=== PATIENT | female | born 1970 | race Caucasian/White ===

== ENCOUNTER 2023-01-18 16:42 | Outpatient (OUT) | payer OTHER, SELFPAY ==
--- NOTE | 2023-01-18 | XR_ITS ---
[address] [address] Patient Name: SYLVIE SINGH MRN: [id number] date: 1970 Sex: F Assigned Patient Location: [facility] Current Patient Location: [facility] Accession/Order Number: [id number] Exam Date: 01/18/2023 17:15 Report Date: 01/18/2023 18:26 At the request of: LISA KILLIAN Procedure: XR shoulder RT min 2V EXAM: XR shoulder RT min 2V HISTORY: pAIN ANTERIOR RT UPPER EXTREMITY m79.601 COMPARISON: None. TECHNIQUE: 3 views of the right shoulder were obtained. FINDINGS: There is no evidence of an acute fracture or dislocation. The joint spaces are relatively intact. No abnormal soft tissue calcifications are present. IMPRESSION: No acute fracture, dislocation or significant degenerative change at the shoulder. Electronically authenticated by: WILLIAM CHEUNG Date: 01/18/2023 18:26
== END 2023-01-18 16:43 | disposition home or self-care (01) ==
LOC: RAD 16:46
PROVIDERS: PCP Family Medicine; Visit Provider Family Medicine
DX: M79.601 Pain in right arm (principal); M25.511 Pain in right shoulder
CPT/HCPCS: 73030

== ENCOUNTER 2024-07-06 01:51 | Emergency (ER) | payer OTHER, SELFPAY ==
[2024-07-06] VITALS (16 sets, daily range): BP systolic 127–160; BP diastolic 75–101; PULSE 60–71; TEMP 36.8; O2SAT 93–98; BMI 37.4
--- NOTE | 2024-07-06 01:59 | ED.CHESTPAI1 ---
HPI - Chest Pain General Chief Complaint: Chest Pain Stated Complaint: C/P Time Seen by Provider: 07/06/24 01:59 Source: patient Mode of arrival: ambulance Limitations: no limitations History of Present Illness HPI narrative: This 53-year-old female with a history of type 2 diabetes who was formally on insulin and had gastric bypass surgery and has been off of her blood pressure and diabetic medications since losing weight presents for evaluation of dizziness with chest pain and tingling down her left arm. The patient states she has been having episodes of dizziness recently. She was seen by her family physician who ordered some blood work and stated that her sodium was mildly low and she may be mildly dehydrated. She states that he wanted to do a CT angio of her heart. The patient states she was sleeping and woke up feeling short of breath and sat up and could not calm herself down when she started having some chest pain and the tingling down her left arm. She also had some pain in her left scapular area. Her rubs some ointment on this area. She is not having any abdominal pain. She denies any nausea or vomiting. She does have a history of a DVT and was on blood thinners prior to her gastric bypass surgery. She was given 1 nitroglycerin by EMS with improvement in her chest pain from a 6 to a 1. She states she last ate a taco salad for dinner. Related Data Home Medications ?Medication ?Instructions ?Recorded ?Confirmed duloxetine 20 mg capsule,delayed 20 mg PO DAILY 07/06/24 07/06/24 release Allergies Allergy/AdvReac Type Severity Reaction Status Date / Time No Known Drug Allergies Allergy Verified 07/06/24 01:55 Review of Systems ROS Status of ROS 10 or more systems reviewed and unremarkable except as noted in history and below PFSH PFSH Social History Little interest or pleasure in doing things: not at all Feeling down, depressed, or hopeless: not at all Exam Narrative Exam Narrative: Vital signs and Nursing Notes reviewed: Patient is afebrile with a normal pulse, normal blood pressure, she is not hypoxic with pulse ox of 98% on room air General: Awake, alert, oriented, mildly anxious, lying comfortably on the stretcher HEENT: Normocephalic atraumatic, mucous membranes are moist and pink, eyes are clear, normal conjunctiva, vision is grossly intact Chest: Lungs are clear to auscultation with good air entry, there is no wheezing rhonchi or rales appreciated no accessory muscle use, patient is speaking in complete sentences-no chest wall tenderness to palpation CVS: Regular rate and rhythm S1-S2, no murmurs rubs or gallops, pulses are brisk and equal bilaterally ABD: Soft, nondistended, nontender, no rebound guarding or rigidity, bowel sounds are normal, no pulsatile masses appreciated Extremities: Moving all extremities, no lower extremity tenderness or swelling noted, negative Homans' sign, pulses are brisk and equal bilaterally Skin: Normal in appearance without rash,pallor, petechiae or purpura Neuro: No focal deficits Constitutional Vital Signs, click to edit/add: Last Vital Signs Temp 98.3 F 07/06/24 01:51 Pulse 71 07/06/24 03:50 Resp 18 07/06/24 03:50 BP 155/98 H 07/06/24 03:30 Pulse Ox 94 L 07/06/24 03:50 O2 Del Method Room Air 07/06/24 01:51 Course Vital Signs Vital signs: Vital Signs Blood Pressure 137/82 07/06/24 01:49 Temperature 98.3 F 07/06/24 01:51 Pulse Rate 71 07/06/24 03:50 Respiratory Rate 18 07/06/24 03:50 Blood Pressure 155/98 H 07/06/24 03:30 Pulse Oximetry 94 L 07/06/24 03:50 Oxygen Delivery Method Room Air 07/06/24 01:51 MDM - Chest Pain MDM Narrative Medical decision making narrative: This 53-year-old female with a history of gastric bypass surgery who was formally on insulin and blood pressure medications but has since lost weight and is off her medications is brought to the emergency department by EMS from home. The patient has been having episodes of dizziness. She was seen by her family physician recently who did some blood work and told her that she may be somewhat dehydrated. She states she tries to keep up on her fluids but admits that at times she does not drink as much as she should. Last night she had taco salad for dinner. This morning around 1230 she woke up with some dizziness and states she felt like she could not catch her breath. She then developed midsternal chest pain and tingling down her left arm. She also had some pain in her left upper back area. Her rubs her back for a period of time and then called EMS. Upon EMS arrival she was given a sublingual nitroglycerin which brought her pain from a 6 to a 1. Upon arrival her pain was mostly resolved. EKG done upon arrival was a sinus rhythm with no acute findings. An IV was placed and due to her history of gastric bypass surgery and possibly dehydration she was given a liter of normal saline and 81mg baby aspirin and IV Pepcid. Cardiac workup including CBC with differential, comprehensive metabolic profile, troponin and D-dimer was ordered. These labs are all normal. Chest x-ray is negative for acute findings. She has remained hemodynamically stable in the emergency department. Delta troponin was ordered and is also normal. The patient was feeling better after IV fluids. She thinks she may have some degree of dehydration. She was encouraged to drink plenty of fluids and follow-up closely with her family physician. Lab Data Attestation: I reviewed the patient's lab results. Labs: Lab Results 07/06/24 07/06/24 Range/Units 02:10 03:30 WBC 7.4 (4.0-11.0) 10^3/uL RBC 4.14 L (4.20-5.40) 10^6/uL Hgb 11.3 L (12.0-16.0) g/dL Hct 35.4 L (36.0-48.0) % MCV 85.5 (81.0-99.0) fL MCH 27.3 (26.7-34.0) pg MCHC 31.9 (29.9-35.2) g/dL RDW 14.6 (11.0-15.0) % Plt Count 216 (150-450) 10^3/uL MPV 10.4 (9.5-13.5) fL Neut % (Auto) 65.8 (43.0-75.0) % Lymph % (Auto) 25.0 (20.5-60.0) % [place] % (Auto) 7.5 (1.7-12.0) % Eos % (Auto) 1.1 (0.9-7.0) % Baso % (Auto) 0.3 (0.2-2.0) % Neut # (Auto) 4.8 (1.4-6.5) 10^3/uL Lymph # (Auto) 1.8 (1.2-3.8) 10^3/uL [place] # (Auto) 0.6 (0.3-0.8) 10^3/uL Eos # (Auto) 0.1 (0.0-0.7) 10^3/uL Baso # (Auto) 0.0 (0.0-0.1) 10^3/uL Abs Immat Gran (auto) 0.02 (0.00-0.03) 10^3/uL Imm/Tot Granulo (auto) 0.3 (0.0-0.5) % D-Dimer 0.30 (<=0.59) mg/L FEU Sodium 140 (136-145) mmol/L Potassium 4.0 (3.5-5.1) mmol/L Chloride 104 (98-107) mmol/L Carbon Dioxide 31.3 (21.0-32.0) mmol/L Anion Gap 8.7 BUN 16.0 (7.0-18.0) mg/dL Creatinine 0.82 (0.55-1.02) mg/dL Est GFR ( Amer) >60 (>=60 mL/min/1.73m^2) Est GFR (Non-Af Amer) >60 (>=60 mL/min/1.73m^2) BUN/Creatinine Ratio 19.5 Glucose 120 H (74-106) mg/dL Calcium 8.8 (8.5-10.1) mg/dL Total Bilirubin 0.6 (0.2-1.0) mg/dL AST 19 (15-37) U/L ALT 23 (14-59) U/L Alkaline Phosphatase 95 (46-116) U/L Troponin I High Sens 4.5 4.0 (4.0-51.3) pg/mL Total Protein 6.2 L (6.4-8.2) g/dL Albumin 2.7 L (3.4-5.0) g/dL Globulin 3.5 g/dL Albumin/Globulin Ratio 0.8 ECG Data Attestation: I personally reviewed and interpreted this ECG as follows: (Sinus rhythm at 66 bpm, normal axis, normal intervals, no acute ST segment elevation or T wave inversion) Heart Score History: Slightly/Non-Suspicious ECG: Normal Age: >45-<65 years Risk Factors: 1 or 2 Risk Factors Troponin: <Normal Limit Total Heart Score Recommendations & Risks:: 2 Discharge Plan Discharge Chief Complaint: Chest Pain Clinical Impression: Non-cardiac chest pain, Dizziness Patient Disposition: Home, Self-Care Time of Disposition Decision: 04:34 Condition: Good Prescriptions / Home Meds: No Action duloxetine 20 mg capsule,delayed release(DR/EC) 20 mg PO DAILY Print Language: Belarusian Instructions: Dizziness (ED), Noncardiac Chest Pain (ED) Referrals: LISA KILLIAN [Primary Care Provider] - 1 week
[2024-07-06 02:18] LABS: Basophils Percent Auto 0.3 % (0.2-2.0); Eosinophils Absolute Auto 0.1 10^3/uL (0.0-0.7); Eosinophils Percent Auto 1.1 % (0.9-7.0); Hematocrit 35.4 % (36.0-48.0); Hemoglobin 11.3 g/dL (12.0-16.0); Immature Granulocytes Abs Auto 0.02 10^3/uL (0.00-0.03); Immature Granulocytes Pct Auto 0.3 % (0.0-0.5); Lymphocytes Absolute Auto 1.8 10^3/uL (1.2-3.8); Mean Corpuscular HGB Conc 31.9 g/dL (29.9-35.2); Mean Corpuscular Hemoglobin 27.3 pg (26.7-34.0); Mean Corpuscular Volume 85.5 fL (81.0-99.0); Mean Platelet Volume 10.4 fL (9.5-13.5); Monocytes Absolute Auto 0.6 10^3/uL (0.3-0.8); Monocytes Percent Auto 7.5 % (1.7-12.0); Neutrophils Absolute Auto 4.8 10^3/uL (1.4-6.5); Neutrophils Percent Auto 65.8 % (43.0-75.0); Platelet Count 216 10^3/uL (150-450); Red Blood Count 4.14 10^6/uL (4.20-5.40); Red Cell Distribution Width 14.6 % (11.0-15.0); White Blood Count 7.4 10^3/uL (4.0-11.0)
[2024-07-06 02:38] LABS: Alanine Aminotransferase 23 U/L (14-59); Albumin Globulin Ratio 0.8; Albumin Level 2.7 g/dL (3.4-5.0); Alkaline Phosphatase 95 U/L (46-116); Anion Gap 8.7; Aspartate Amino Transferase 19 U/L (15-37); BUN Creatinine Ratio 19.5; Bilirubin Total 0.6 mg/dL (0.2-1.0); Calcium 8.8 mg/dL (8.5-10.1); Carbon Dioxide 31.3 mmol/L (21.0-32.0); Chloride 104 mmol/L (98-107); Estimated GFR (African America >60 (>=60 mL/min/1.73m^2); Estimated GFR (Non-African Ame >60 (>=60 mL/min/1.73m^2); Globulin 3.5 g/dL; Glucose 120 mg/dL (74-106); Sodium 140 mmol/L (136-145); Total Protein 6.2 g/dL (6.4-8.2); Troponin I High Sensitivity 4.5 pg/mL (4.0-51.3)
[2024-07-06] MEDS: 0.9 % SODIUM CHLORIDE 1,000 ML 1000 ML IV (02:40)
[2024-07-06] MEDS: FAMOTIDINE/PF 20 MG/2 ML VIAL IV (02:42)
[2024-07-06] MEDS: ASPIRIN 81 MG TAB.CHEW PO (02:42)
--- NOTE | 2024-07-06 03:19 | XR_ITS ---
The [address] [address] Patient Name: SYLVIE SINGH MRN: [id number] date: 1970 Sex: F Assigned Patient Location: ER Current Patient Location: ER Accession/Order Number: [id number] Exam Date: 07/06/2024 03:31 Report Date: 07/06/2024 04:01 At the request of: ASHA MARKER Procedure: XR chest 1V EXAM: XR chest 1V HISTORY: Chest pain COMPARISON: Chest radiograph dated 10/08/2022. TECHNIQUE: One view of the chest was obtained. FINDINGS: The cardiac silhouette is borderline enlarged though stable in size. There is mild suspected bibasilar atelectasis. There is no significant pneumothorax or pleural effusion. No acute osseous abnormality is seen. An anchor screw is seen within the right humeral head. XR/XR chest 1V IMPRESSION: 1. Stable borderline enlarged cardiac silhouette with mild bibasilar atelectasis. Electronically authenticated by: Kelly BELLE Date: 07/06/2024 04:01
--- NOTE | 2024-07-06 05:43 | ECG_ITS ---
The 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
== END 2024-07-06 05:00 | disposition home or self-care (01) ==
PROVIDERS: Emergency Provider Emergency Medicine; PCP Family Medicine
DX: R07.89 Other chest pain (principal); R42 Dizziness and giddiness; E11.9 Type 2 diabetes mellitus without complications; Z98.84 Bariatric surgery status; Z86.718 Personal history of other venous thrombosis and embolism
CPT/HCPCS: 36415; 71045; 80053; 84484; 85025; 85378; 93005; 96361; 96374; 99285

== ENCOUNTER 2025-01-23 14:16 | Emergency (ER) | payer OTHER, SELFPAY ==
--- OUTSIDE RECORDS SUMMARY | 2024-08-17 11:45 | XMS_ITS | Continuity of Care Document ---
Author [facility] [employer] [facility] Address [address] [facility] [place] [address] Phone Care Team Providers Care Rock Star Name Role Phone Sabina Mcgee CNP Unavailable Unavailable Procedures Procedure Date OFFICE/OUTPATIENT VISIT, EST OFFICE/OUTPATIENT VISIT, EST POSTOP FOLLOW-UP VISIT POSTOP FOLLOW-UP VISIT LAP GASTRIC BYPASS/SCOT-EN-Y OFFICE/OUTPATIENT VISIT, EST PSYCL TST EVAL PHYS/QHP 1ST PSYCL/NRPSYC TST PHY/QHP PSYCL/NRPSYC TST PHY/QHP OFFICE/OUTPATIENT VISIT, NEW Advance Directives Directive Yes / No Effective Date File Name No Information Encounters Encounter Description Practice Location Reason(s) For Visit Diagnoses Date Provider Providers Copied on Encounter OFFICE/OUTPATI ENT VISIT, [facility] [employer] [facility], [address] [place] [address], [id number], [place] tel:[phone] [facility] No Information Arely Muhammad. [address] [place] [address], [id number], [place]. tel:[phone] Referring Provider: Sabina Mcgee, [address] [place] [address], [place], [address]. tel:[phone] OFFICE/OUTPATI ENT VISIT, [facility] [employer] [facility], [address] [place] [address], [id number], [place] tel:[phone] [facility] No Information Shellie Reeves. [address] [place] [address] [address], [place], [place], [id number], [place]. tel:[phone] Referring Provider: Leandro Malone, [address] [place] [address] [address], [place], [address]. tel:[phone], [address] [place] [address] [address], [place], [place], [id number], [place] tel:[phone] [facility] No Information Arely Muhammad. [address] [place] [address] [address], [place], [place], [id number], [place]. tel:[phone] Referring Provider: Sabina Mcgee, [address] [place] [address] [address], [place], [address]. tel:[phone], [address] [place] [address] [address], [place], [place], [id number], [place] tel:[phone] [facility] No Information Arely Muhammad. [address] [place] [address] [address], [place], [place], [id number], [place]. tel:[phone] Referring Provider: Sabina Mcgee, [address] [place] [address] [address], [place], [address]. tel:[phone] [employer] [facility], [address] [place] [address] [address], [place], [place], [id number], [place] tel:[phone] [facility] No Information Shellie Reeves. [address] [place] [address] [address], [place], [place], [id number], [place]. tel:[phone] Referring Provider: Leandro Malone, [address] [place] [address] [address], [place], [address]. tel:[phone] OFFICE/OUTPATI ENT VISIT, [facility] [employer] [facility], [address] [place] [address] [address], [place], [place], [id number], [place] tel:[phone] [facility] No Information Shellie Reeves. [address] [place] [address], [place], [place], [id number], [place]. tel:[phone] Referring Provider: Leandro Malone, [address] [place] [address], [place], [address]. tel:[phone] [facility], [address] [place] [address], [place], [place], [id number], tel:[phone] [facility] No Information Kaleb Granger. [address] [place] [address], [place], [place], [id number], [place]. tel:[phone] Referring Provider: Bárbara Manuel, [address] [place] [address], [place], [address]. tel:[phone] OFFICE/OUTPATI ENT VISIT, [facility], [address] [place] [address] B, [place], [place], [id number], tel:[phone] [facility] No Information Shellie Reeves. [address] [place] [address], [id number], [place]. tel:[phone] Referring Provider: Leandro Malone, [address] [place] [address], [place], [address]. tel:[phone] Family History Family Member Type Diagnosis Age At Onset No Information Payers Payer name Insurance type Covered democrat ID Halle hogan(s) [facility] [id number] Social History Type Description Quantity Date Captured Comments Sex Female Smoking Status No Information Chief Complaint And Reason For Visit No Information Reason For Referral Reason For Referral No Information Plan Of Treatment Date Type Action Status Appointment Ronan Menon BOOKED History Of Present Illness Encounter Date Complaint History Of Prese nt Illness No Information Functional Status Date Functional Assessmen t No Information Instructions Date Instruction Additional Infor mation No Information Assessments Type Assessment Date No Information Patient Care Teams Name Effective Dates (start - stop) Status Members No Information
[2025-01-23] VITALS (21 sets, daily range): BP systolic 119–192; BP diastolic 61–102; PULSE 69–89; O2SAT 93–98; BMI 35.8
--- OUTSIDE RECORDS SUMMARY | 2025-01-23 13:20 | XMS_ITS | Encounter Summary ---
Author Organization [facility] Address [address] [facility] [place] [address] Care Team Providers Care Office Cleaner Name Role Phone Jaylon Schroeder DO Unavailable Neftali Hicks DO Primary Care Provider Francis Benjamin MD Unavailable Reason for Visit * Reason Comments Hypertension Encounter Details Date Type Department Care Team (Late st Contact Info) Description 01/23/2025 1:20 PM EDT Office Visit [facility] [address] [facility] [address] [place] [address] Neftali Hicks DO [address] [place], [place] [id number] Primary hypertension (Primary Dx); Left facial numbness Social History Tobacco Use Types Packs/Day Years Used Date Smoking Tobacco: Never Smokeless Tobacco: Never Alcohol Use Standard Drinks/Week Comments Not Currently 0 (1 standard drink = 0.6 oz pur e alcohol) not often Humiliation, Afraid, Rape, and Kick questionnair e Answer Date Recorded Within the last year, have y ou been afraid of your partner or ex-partner? No 01/18/2023 Within the last year, have y ou been humiliated or emotionally abused in other ways by your partner or ex-partner? No Within the last year, have y ou been kicked, hit, slapped, or otherwise physically hurt by your partner or ex-partner? No 01/18/2023 Within the last year, have y ou been raped or forced to have any kind of sexual activity by your partner or ex-partner? No 01/18/2023 Social Connection and Isolat ion Panel [NHANES] Answer Date Recorded In a typical week, how many times do you talk on the phone with family, friends, or neighbors? More than three times a week 01/18/2023 How often do you get togethe r with friends or relatives? Twice a week 01/18/2023 How often do you attend chur or sikh services? More than 4 times per year 01/18/2023 Do you belong to any clubs o r organizations such as buddhist groups, unions, fraternal or athletic groups, or school groups? No 01/18/2023 How often do you attend meet ings of the clubs or organizations you belong to? Never 01/18/2023 Are you , , di vorced, , never , or living with a partner? 01/18/2023 AUDIT-C Answer Date Recorded Q1: How often do you have a drink containing alc ohol? Monthly or less 09/25/2024 Q2: How many drinks containi ng alcohol do you have on a typical day when you are drinking? 1 or 2 09/25/2024 Q3: How often do you have si x or more drinks on one occasion? Never 09/25/2024 Overall Financial Resource Strain (CARDIA) Answe r Date Recorded How hard is it for you to pa y for the very basics like food, housing, medical care, and heating? Not very hard 01/18/2023 PHQ-2 Answer Date Recorded Patient Health Questionnaire-2 Score 0 01/23/2025 [facility] - Occupational Stress Questionnaire Answer Date Recorded Do you feel stress - tense, restless, nervous, or anxious, or unable to sleep at night because your mind is troubled all the time - these days? Very much 01/18/2023 Exercise Vital Sign Answer Date Recorde d On average, how many days pe r week do you engage in moderate to strenuous exercise (like a brisk walk)? 2 days 01/18/2023 On average, how many minutes do you engage in exercise at this level? 20 min 01/18/2023 Hunger Vital Sign Answer Date Recorded Within the past 12 months, y ou worried that your food would run out before you got the money to buy more. Never true 01/19/20 Within the past 12 months, t he food you bought just didn't last and you didn't have money to get more. Never true 01/18/2023 PRAPARE - Transportation Answer Date Re corded In the past 12 months, has l ack of transportation kept you from medical appointments or from getting medications? No 12/25 In the past 12 months, has l ack of transportation kept you from meetings, work, or from getting things needed for daily living? No 01/18/2023 Housing Stability Vital Sign Answer Tello e Recorded In the last 12 months, was t here a time when you were not able to pay the mortgage or rent on time? No 01/18/2023 In the last 12 months, how many places have you lived? 1 01/18/2023 In the last 12 months, was t here a time when you did not have a steady place to sleep or slept in a senior living (including now)? No 01/18/2023 Comments No Sex and Gender Information Value Date Recorded Sex Assigned at Female 01/13/2023 7:52 PM EDT Legal Sex Female 6:48 PM EDT Gender Identity Female 01/13/2023 7:52 PM EDT Sexual Orientation Straight 01/13/2023 7: 53 PM EDT documented as of this encounter Last Filed Vital Signs Vital Sign Reading Time Taken Comments Blood Pressure 150/92 01/23/2025 1:22 PM EDT Pulse 72 01/23/2025 1:22 PM EDT Temperature 36.6 C (97.9 F) 01/23/2025 1:22 PM EDT Respiratory Rate - - Oxygen Saturation 99% 01/23/2025 1:22 PM EDT Inhaled Oxygen Concentration - - Weight 100 kg (221 lb) 01/23/2025 1:22 PM EDT Height 165.1 cm (5' 5 ) 01/23/2025 1:22 PM EDT Body Mass Index 36.78 01/23/2025 1:22 PM EDT documented in this encounter Functional Status * Over the past 2 weeks, how often have you been bothered by any of the following problems? Question Answer Date of Assessment Author Little interest or pleasure in doing things Not at all 01/23/2025 1:28 PM EDT Felicia Tineo MA Feeling down, depressed, or hopeless Not at all 01/23/2025 1:28 PM EDT Felicia Tineo MA Patient Health Questionnaire -2 Score 0 01/23/2025 1:28 PM EDT Felicia Tineo MA documented as of this encounter Progress Notes * Neftali Hicks, DO - 01/23/2025 1:20 PM EDT Images from the original note were not included. [facility] TOBI [place] SUBJECTIVE: HPI: Ronan Menon is a 54 y.o. female who presents with chief complaint of Hypertension (/) Pt states she has been having high blood pressure reading all day today. Pt states that on 01/22/25 she was not feeling well and she thought it was her BS but then realized it was her BP. Pt states that her BP was 195/99 about 30 minutes ago. Hypertension I have reviewed and reconciled the history and medication list with the patient today. History of Present Illness The patient presents for evaluation of elevated blood pressure. She reports feeling unwell today, with symptoms including a sensation of fuzziness, tingling, and general discomfort that began last night. Initially, she attributed these symptoms to her blood sugarlevels, but upon checking, her blood sugar was found to be 116. She then considered her blood pressure as a potential cause and found it to be elevated. She has not been on any blood pressure medication for over a year, although she was previously taking Cozaar 100 mg daily. She has a wrist cuff athome for monitoring her blood pressure but has not felt the need to use it recently. She works in [employer] home where her blood pressure is monitored using both automatic and manual cuffs, with readings typically differing by only one unit. She also reports intermittent tingling in her lips and left arm, along with an unusual sensation inher head. She has a history of undergoing CT scans every 2 years due to a family history of aneurysms but has not had one recently. She experienced a mild headache, which resolved after taking Tylenol. She prefers to seek medical attention at [facility] rather than [facility]. Supplemental Information She will be getting some lab work done in a week or two as she has her yearly follow-up with the gastric bypass. FAMILY HISTORY Her mother had 4 aneurysms, 2 of which burst. Two of her mother's siblings had aneurysms. Two of her cousins have had aneurysms. MEDICATIONS - Previously took Cozaar Depression: Not at risk (01/23/2025) PHQ-2 PHQ-2 Score: 0 reports that she has never smoked. She has never used smokeless tobacco. She reports that she does not currently use alcohol. She reports that she does not use drugs. OBJECTIVE: 07/21/2024 11:31 AM 08/15/2024 8:39 AM 09/18/2024 3:39 PM 09/25/2024 3:09 PM 10/19/2024 8:42 AM 10/25/2024 3:52 PM 01/23/2025 1:22 PM Vitals BMI 40.44 kg/m2 40.44 kg/m2 39.94 kg/m2 36.44 kg/m2 36.44 kg/m2 36.44 kg/m2 36.78 kg/m2 BSA (m2) 2.25 m2 2.25 m2 2.24 m2 2.13 m2 2.13 m2 2.13 m2 2.14 m2 Systolic 136 122 150 Diastolic 84 80 92 Heart Rate 85 80 72 SpO2 94 % 95 % 99 % Temp 98.3 ??F 97.3 ??F 97.9 ??F Resp 16 Height (in) 5' 5 5' 5 5' 5 5' 5 5' 5 5' 5 5' 5 Weight (lb) 243 243 240 219 219 219 221 Visit Report Report Report Report Report Report Report Report Physical Exam Constitutional: General: She is not in acute distress. Appearance: She is not ill-appearing or toxic-appearing. HENT: Head: Normocephalic. Eyes: Conjunctiva/sclera: Conjunctivae normal. Pulmonary: Effort: Pulmonary effort is normal. No respiratory distress. Breath sounds: No stridor. Abdominal: General: Abdomen is flat. Tenderness: There is no abdominal tenderness. Musculoskeletal: General: No swelling or signs of injury. Normal range of motion. Cervical back: Normal range of motion. Skin: General: Skin is warm and dry. Neurological: General: No focal deficit present. Mental Status: She is alert. Mental status is at baseline. Coordination: Coordination normal. Gait: Gait normal. Comments: Unilat parasthesias/numbness of L face and LUE Psychiatric: Mood and Affect: Mood normal. Behavior: Behavior normal. Thought Content: Thought content normal. Judgment: Judgment normal. Physical Exam Results Laboratory Studies Blood sugar was 116. No results found for this or any previous visit (from the past 4 weeks). ASSESSMENT AND PLAN: Assessment/Plan Diagnoses and all orders for this visit: Primary hypertension - olmesartan (BENIcar) 20 MG tablet; Take 1 tablet (20 mg) by mouth Daily Left facial numbness Assessment & Plan 1. Elevated blood pressure: Chronic. - Prescription for olmesartan 20 mg issued. - Monitor blood pressure at home using an upper arm cuff. - Adjust dosage if blood pressure remains high after one week. 2. Unilateral numbness and tingling: Acute. - Family history of aneurysms and hemorrhagic stroke. - Advised to go to the emergency department immediately for a CT scan to rule out serious conditions. - Declined EMS transfer from the office due to preference for [facility] over [facility] department. - Advised to have a friend or family member drive due to potential risk of stroke. She stated she will drive herself. Follow-up - Yearly follow-up with gastric bypass in a week or two. Neftali Hicks DO Patient Active Problem List Diagnosis Cervical radiculopathy Type 2 diabetes mellitus without complication, without long-term current use of insulin ([facility]) Arthritis of left hip Arthritis of left knee Arthritis of right knee Chronic fatigue syndrome Essential hypertension Euthyroid sick syndrome Gastroesophageal reflux disease without esophagitis H/O hysterectomy for benign disease Moderate episode of recurrent major depressive disorder (HCC) Class 2 severe obesity due to excess calories with serious comorbidity and body mass index (BMI) of36.0 to 36.9 in adult ([facility] [place] Postmenopausal symptoms Restless leg syndrome Skin sensation disturbance BMI 50.0-59.9, adult ([facility] [place] Abnormal EKG History of Isabell-en-Y gastric bypass Past Medical History: Diagnosis Date Anxiety BMI 40.0-44.9, adult ([facility] [place] Borderline diabetes borderline diabetes no meds DM (diabetes mellitus), type [address]) Hypertension Hypertensive emergency IBS (irritable bowel syndrome) Internal derangement of left knee LILLIANA (obstructive sleep apnea) 02/04/2023 Rotator cuff syndrome of left shoulder Situational anxiety SOB (shortness of breath) 10/08/2022 chest pressure, TBH 1 night Type 2 diabetes mellitus with hyperglycemia, without long-term current use of insulin (HCC) documented in this encounter Plan of Treatment Upcoming Encounters Date Type Department Care Team (Late st Contact Info) Description 10/22/2025 8:00 AM EDT Office Visit [facility] [address] [facility] [address] [place] [address] Neftali Hicks DO [address] [facility] [address] [place] [address] documented as of this encounter Visit Diagnoses Diagnosis Primary hypertension- Primary Unspecified essential hypertension Left facial numbness Disturbance of skin sensation documented in this encounter Care Teams Office Cleaner Relationship Specialty Start Date End Date Neftali Hicks DO [address] [facility] [address] [place] [address] PCP - General Family Medicine 10/19/24 Jaylon Schroeder DO [address] [facility] [place] [place] [address] Otolaryngology 08/15/24 Francis Benjamin MD [address] [place] [address] Referring Physician Family Medicine 10/25/24 documented as of this encounter
--- OUTSIDE RECORDS SUMMARY | 2025-01-23 14:24 | XMS_ITS | Encounter Summary ---
Author Organization [facility] Address [address] [place] [address] Care Team Providers Care Hydramatic Mechanic Name Role Phone Francis Benjamin MD Primary Care Provider Jaylon Schroeder Man DO Unavailable [phone] Neftali Hicks DO Primary Care Provider Francis Benjamin MD Unavailable [phone] Encounter Details Date Type Department Care Team (Late st Contact Info) Description 11/24/2023 Orders Only [facility] [address] [place] [address] Francis Benjamin MD [address] [facility] [address] [place] [address] Essential hypertension (Primary Dx); Type 2 diabetes mellitus with hyperglycemia, with long-term current use of insulin (HCC); Flank pain Social History Tobacco Use Types Packs/Day Years Used Date Smoking Tobacco: Never Smokeless Tobacco: Never Alcohol Use Standard Drinks/Week Comments Yes 3 (1 standard drink = 0.6 oz pur e alcohol) Humiliation, Afraid, Rape, and Kick questionnair e [...] How often do you attend chur or christianity services? More than 4 times per year 01/18/2023 Do you belong to any clubs o r organizations such as synagogue groups, unions, fraternal or athletic groups, or school groups? No 01/18/2023 How often do you attend meet ings of the clubs or organizations you belong to? Never 01/18/2023 Are you , , di vorced, , never , or living with a partner? 01/18/2023 AUDIT-C Answer Date Recorded Q1: How often do you have a drink containing alc ohol? Monthly or less 01/18/2023 Q2: How many drinks containi ng alcohol do you have on a typical day when you are drinking? 1 or 2 01/18/2023 Q3: How often do you have si x or more drinks on one occasion? Never 01/18/2023 Overall Financial Resource Strain (CARDIA) Answe r Date Recorded How hard is it for you to pa y for the very basics like food, housing, medical care, and heating? Not very hard 01/18/2023 PHQ-2 Answer Date Recorded Patient Health Questionnaire-2 Score 0 07/12/2023 [facility] Occupat ional Health - Occupational Stress [...] money to buy more. Never true 01/19/20 23 Within the past 12 months, t he [...] place to sleep or slept in a long term (including now)? No 01/18/2023 Comments No Sex and Gender Information Value Date Recorded Sex Assigned at Female 01/13/2023 7:52 PM EDT Legal Sex Female 6:48 PM EDT Gender Identity Female 01/13/2023 7:52 PM EDT Sexual Orientation Straight 01/13/2023 7: 53 PM EDT documented as of this encounter Plan of Treatment Upcoming Encounters Date Type Department Care Team (Late st Contact Info) Description 10/22/2025 8:00 AM EDT Office Visit [facility] [address] [place] [address] Neftali Hicks, [address] [place] [address] documented as of this encounter Procedures Procedure Name Priority Date/Time Associated Diagnosis Comments COMPREHENSIVE METABOLIC PANEL Routine 12/01/2023 8:06 AM EDT Essential hypertension Type 2 diabetes mellitus with hyperglycemia, with long-term current use of insulin (HCC) Flank pain documented in this encounter Results * (ABNORMAL) Comprehensive metabolic panel (12/01/2023 8:06 AM EDT) Glucose 166(H) 65 - 99 mg/dL [facility] Comment: Fasting reference interval For someone without known diabetes, a glucose value >125 mg/dL indicates that they may have diabetes and this should be confirmed with a follow-up test. BUN 15 7 - 25 mg/dL [facility] Creatinine 0.60 0.50 - 1.03 mg/dL [facility] EGFR 107 > OR = 60 mL/min/1. 73m2 [facility] BUN/CREATININE RATIO SEE NOTE: 6 - 22 (calc) [facility] Comment: Not Reported: BUN and Creatinine are within reference range. Sodium 137 135 - 146 mmol/L [facility] Potassium, Bld 4.5 3.5 - 5.3 mmol/L [facility] Chloride 102 98 - 110 mmol/L [facility] Carbon Dioxide 30 20 - 32 mmol/L [facility] Calcium 8.8 8.6 - 10.4 mg/dL [facility] PROTEIN, TOTAL 6.3 6.1 - 8.1 g/dL [facility] ALBUMIN 3.8 3.6 - 5.1 g/dL [facility] GLOBULIN 2.5 1.9 - 3.7 g/dL (calc) [facility] ALBUMIN/GLOBULIN RATIO 1.5 1.0 - 2.5 (calc) [facility] BILIRUBIN, TOTAL 0.7 0.2 - 1.2 mg/dL [facility] ALKALINE PHOSPHATASE 82 37 - 153 U/L [facility] AST 16 10 - 35 U/L [facility] ALT 18 6 - 29 U/L [facility] Blood Venous blood specimen / Unknown 12/01/2023 8:06 AM EDT 12/01/2023 2:41 PM EDT Narrative [facility] - 12/01/2023 3:53 PM EDT FASTING:YES FASTING: YES Resulting Agency Comment Performing Organization Information Site ID: [id number] Address: [address] [place] [id number] Director: Paul Hernandez Francis Benjamin MD LAB BLOOD ORDERABLES Final R esult [facility] documented in this encounter Visit Diagnoses Diagnosis Essential hypertension- Primary Unspecified essential hypertension Type 2 diabetes mellitus with hyperglycemia, with long-term current use of insulin (HCC) Flank pain Abdominal pain, unspecified site documented in this encounter Care Teams Hydramatic Mechanic Relationship Specialty Start Date End Date Francis Benjamin MD [address] [facility] [address] [place] [address] PCP - General Family Medicine 12/10/22 10/18/24 Neftali Hicks DO [address] [place] [address] PCP - General Family Medicine 10/19/24 Jaylno Schroeder DO [address] [place] [address] Otolaryngology 08/15/24 Francis Benjamin MD [address] [address] Referring Physician Family Medicine 10/25/24 documented as of this encounter
--- OUTSIDE RECORDS SUMMARY | 2025-01-23 14:24 | XMS_ITS | Encounter Summary ---
Author Organization [facility] Address [address] [place] [address] Care Team Providers Care Sales Account Director Name Role Phone Francis Benjamin MD Primary Care Provider [phone] Elda Jaylon Conway DO Unavailable [phone] Neftali Hicks DO Primary Care Provider Francis Benjamin MD Unavailable [phone] Encounter Details Date Type Department Care Team (Late st Contact Info) Description 06/12/2023 Abstract [facility] [address] [place] [id number] Beverley Juares NP Social History Tobacco Use Types Packs/Day Years Used Date Smoking Tobacco: Never Smokeless Tobacco: Never Tobacco Cessation:Counseling Given: Not Answered Alcohol Use Standard Drinks/Week Comments Yes 2 (1 standard drink = 0.6 oz pur [...] How often do you attend chur or yazidism services? More than 4 times per year 01/18/2023 Do you belong to any clubs o r organizations such as spiritism groups, unions, fraternal or athletic groups, or [...] care, and heating? Not very hard 01/18/2023 [facility] Occupat ional Health - Occupational [...] place to sleep or slept in a halfway (including now)? No 01/18/2023 Comments No Sex [...] [facility] [address] [facility] 230 [place] [address] Neftali Hicks DO [address] [place] [address] documented as of this encounter Visit Diagnoses Not on filedocumented in this encounter Care Teams Sales Account Director Relationship Specialty Start Date End Date Francis Benjamin MD [address] [place] [address] PCP - General Family Medicine 12/10/22 10/18/24 Neftali Hicks DO [address] [place] [address] PCP - General Family Medicine 10/19/24 Jaylon Schroeder DO [address] [place] [address] Otolaryngology 08/15/24 Francis Benjamin MD [address] [address] Referring Physician Family Medicine 10/25/24 documented as of this encounter
--- OUTSIDE RECORDS SUMMARY | 2025-01-23 14:24 | XMS_ITS | Encounter Summary ---
Author Organization [facility] Address [address] [place] [address] Care Team Providers Care Awning Craftsperson Name Role Phone Francis Benjamin MD Primary Care Provider Jaylon Schroeder Man DO Unavailable [phone] Neftali Hicks DO Primary Care Provider Francis Benjamin MD Unavailable [phone] Encounter Details Date Type Department Care Team (Late st Contact Info) Description 12/16/2023 Orders Only [facility] [address] [place] [address] Francis Benjamin MD [address] [address] Type 2 diabetes mellitus with hyperglycemia, with long-term current use of insulin (HCC) (Primary Dx) Social History Tobacco Use Types Packs/Day Years [...] How often do you attend chur or zoroastrian services? More than 4 times per year 01/18/2023 Do you belong to any clubs o r organizations such as tenriism groups, unions, fraternal or athletic groups, or [...] Recorded Patient Health Questionnaire-2 Score 0 07/12/2023 [facility] of Occupat ional Health - Occupational Stress [...] place to sleep or slept in a retirement (including now)? No 01/18/2023 Comments No Sex [...] [address] [place] [address] Neftali Hicks DO [address] [place] [address] documented as of this encounter Procedures Procedure Name Priority Date/Time Associated Diagnosis Comments HEMOGLOBIN A1C Routine 12/22/2023 12:06 PM EDT Type 2 diabetes mellitus with hyperglycemia, with long-term current use of insulin (HCC) documented in this encounter Results * (ABNORMAL) Hemoglobin A1c (12/22/2023 12:06 PM EDT) Hemoglobin A1C 8.5(H) <5.7 % of total Hgb [facility] Comment: For someone without known diabetes, a hemoglobin A1c value of 6.5% or greater indicates that they may have diabetes and this should be confirmed with a follow-up test. For someone with known diabetes, a value <7% indicates that their diabetes is well controlled and a value greater than or equal to 7% indicates suboptimal control. A1c targets should be individualized based on duration of diabetes, age, comorbid conditions, and other considerations. Currently, no consensus exists regarding use of hemoglobin A1c for diagnosis of diabetes for children. This test was performed on the Rosana gia c503 platform. Effective 07/12/23, a change in test platforms from the Montes Technical Writing Lead/Mgr to the Rosana gia c503 may have shifted HbA1c results compared to historical results. Based on laboratory validation testing conducted at [facility], the Rosana platform relative to the Montes platform had an average increase in HbA1c value of < or = 0.3%. This difference is within accepted variability established by the National Glycohemoglobin Standardization Program. Note that not all individuals will have had a shift in their results and direct comparisons between historical and current results for testing conducted on different platforms is not recommended. Blood Venous blood specimen / Unknown 12/22/2023 12:06 PM EDT 12/22/2023 12:07 PM EDT Narrative [facility] - 12/23/2023 3:58 AM EDT FASTING:NO FASTING: NO Resulting Agency Comment Performing Organization Information Site ID: [id number] Name: [facility] Address: [address] [place] [address], [address] [place] [id number] Director: Leonard Machado MD us Francis Benjamin MD LAB BLOOD ORDERABLES Final R esult [facility] documented in this encounter Visit Diagnoses Diagnosis Type 2 diabetes mellitus with hyperglycemia, with long-term current use of insulin (HCC)- Primary documented in this encounter Care Teams Awning Craftsperson Relationship Specialty Start Date End Date Francis Benjamin MD [address] [place] [address] PCP - General Family Medicine 12/10/22 10/18/24 Neftali Hicks DO [address] [place] [address] PCP - General Family Medicine 10/19/24 Jaylon Schroeder DO [address] [place] [address] Otolaryngology 08/15/24 Francis Benjamin MD [address] [place] [address] Referring Physician Family Medicine 10/25/24 documented as of this encounter
--- OUTSIDE RECORDS SUMMARY | 2025-01-23 14:24 | XMS_ITS | Encounter Summary ---
Author Organization [facility] Address [address] [place] [address] Care Team Providers Care Network Technology Instructor Name Role Phone Francis Benjamin MD Primary Care Provider [phone] Jaylon Schroeder Man DO Unavailable [phone] Neftali Hicks DO Primary Care Provider [phone] Francis Benjamin MD Unavailable [phone] Reason for Visit * Reason Onset Date Comments Med Refill 08/08/2024 Encounter Details Date Type Department Care Team (Late st Contact Info) Description 08/08/2024 Refill [facility] [address] [place] [address] Francis Benjamin MD 112 [facility] [address] [place] [address] Moderate episode of recurrent major depressive disorder (HCC) Social History Tobacco Use Types Packs/Day Years [...] How often do you attend chur or zoroastrianism services? More than 4 times per year 01/18/2023 Do you belong to any clubs o r organizations such as roman catholic groups, unions, fraternal or athletic groups, or [...] Recorded Patient Health Questionnaire-2 Score 0 07/12/2023 [facility] [place] of Occupat ional Health - Occupational Stress [...] place to sleep or slept in a longterm (including now)? No 01/18/2023 Comments No Sex [...] [address] [place] [address] Neftali Hicks DO [address] [place] [address] documented as of this encounter Visit Diagnoses Diagnosis Moderate episode of recurrent major depressive disorder (HCC) documented in this encounter Care Teams Network Technology Instructor Relationship Specialty Start Date End Date Francis Benjamin MD [address] [place] [address] PCP - General Family Medicine 12/10/22 10/18/24 Neftali Hicks DO [address] [place] [address] PCP - General Family Medicine 10/19/24 Jaylon Schroeder DO [address] [place] [address] Otolaryngology 08/15/24 Francis Benjamin MD [address] [place] [address] Referring Physician Family Medicine 10/25/24 documented as of this encounter
--- OUTSIDE RECORDS SUMMARY | 2025-01-23 14:24 | XMS_ITS | Encounter Summary ---
Author Organization [facility] Address [address] [place] [address] Care Team Providers Care Attorney Lawyer Name Role Phone Francis Benjamin MD Primary Care Provider [phone] Jaylon Schroeder Man DO Unavailable [phone] Neftali Hicks DO Primary Care Provider Francis Benjamin MD Unavailable [phone] Reason for Visit * Reason Onset Date Comments Med Refill 01/20/2024 Encounter Details Date Type Department Care Team (Late st Contact Info) Description 01/20/2024 Refill [facility] [address] [place] [address] Francis Benjamin MD [address] [place] [address] Type 2 diabetes mellitus with hyperglycemia, with long-term current use of insulin (HCC) Social History Tobacco Use Types Packs/Day [...] How often do you attend chur or taoist services? More than 4 times per year 01/18/2023 Do you belong to any clubs o r organizations such as mandaeism groups, unions, fraternal or athletic groups, or [...] Recorded Patient Health Questionnaire-2 Score 0 07/12/2023 [facility] [place] of Occupat ional Health - Occupational Stress [...] place to sleep or slept in a alf (including now)? No 01/18/2023 Comments No Sex and Gender Information Value Date Recorded Sex Assigned at Female 01/13/2023 7:52 PM EDT Legal Sex Female 6:48 PM EDT Gender Identity Female 01/13/2023 7:52 PM EDT Sexual Orientation Straight 01/13/2023 7: 53 PM EDT documented as of this encounter Miscellaneous Notes * Telephone Encounter - Merlene De Jesus - 02/21/2024 10:20 AM EDT Ronan did call and left a message to let the office know she was having her surgery and that she would call back after. I did not realize that she was scheduled for an appointment and did not take the appointment out. * Telephone Encounter - Hayde Seo MA - 02/03/2024 9:14 AM EDT EH pt has THY OV on Wednesday, no labs, you had discussion about compliance previously how would you like to proceed. * Telephone Encounter - Hayde Seo MA - 02/01/2024 1:11 PM EDT Pt has an upcoming thyroid office visit and has been non-compliant with getting thyroid labs in a timely manner for the appointment. This appointment will need rescheduled with attention in the notesthat it was rescheduled due to non-compliance. * Telephone Encounter - Francis Benjamin MD - 01/24/2024 3:50 PM EDT I reviewed this. Apologies for that, the refill request came in weird and said it was under a separate message so I did not bother refilling that one when I refilled the other. I did send the prescription. * Telephone Encounter - Merlene De Jesus - 01/24/2024 11:26 AM EDT Ronan called, She is out of her insulin. She stated she sent a portal message but wanted to be sure it was sent to [facility] in [place] since she does not have trouble getting it there. documented in this encounter Plan of Treatment Upcoming Encounters Date Type Department Care Team (Late st Contact Info) Description 10/22/2025 8:00 AM EDT Office Visit [facility] [address] [place] [address] Neftali Hicks, [address] [place] [address] documented as of this encounter Visit Diagnoses Diagnosis Type 2 diabetes mellitus with hyperglycemia, with long-term current use of insulin (HCC) documented in this encounter Care Teams Attorney Lawyer Relationship Specialty Start Date End Date Francis Benjamin MD 112 [facility] [address] [place] [address] PCP - General Family Medicine 12/10/22 10/18/24 Neftali Hicks DO [address] [place] [address] PCP - General Family Medicine 10/19/24 Jaylon Schroeder DO [address] [place] [address] Otolaryngology 08/15/24 Francis Benjamin MD [address] [address] Referring Physician Family Medicine 10/25/24 documented as of this encounter
--- OUTSIDE RECORDS SUMMARY | 2025-01-23 14:24 | XMS_ITS | Encounter Summary ---
Author Organization [facility] Address [address] [place] [address] Care Team Providers Care Train Brake Operator Name Role Phone Francis Benjamin MD Primary Care Provider Jaylon Schroeder Man DO Unavailable [phone] Neftali Hicks DO Primary Care Provider Francis Benjamin MD Unavailable [phone] Reason for Visit * Reason Comments Med Refill Encounter Details Date Type Department Care Team (Late st Contact Info) Description 04/17/2024 Refill [facility] [address] [facility] [place] [address] Francis Benjamin MD 112 [facility] [address] [place] [address] Essential hypertension ; Euthyroid sick syndrome; Moderate episode of recurrent major depressive disorder (HCC); Type 2 diabetes mellitus without complication, without long-term current use of insulin (HCC) Social [...] How often do you attend chur or spiritism services? More than 4 times per year 01/18/2023 Do you belong to any clubs o r organizations such as amish groups, unions, fraternal or athletic groups, or [...] Recorded Patient Health Questionnaire-2 Score 0 07/12/2023 [facility] [place] of Occupat ional Health - Occupational Stress [...] place to sleep or slept in a [place] (including now)? No 01/18/2023 Comments No Sex [...] [address] [place] [address] Neftali Hicks, DO [address] [place] [address] documented as of this encounter Visit Diagnoses Diagnosis Essential hypertension Unspecified essential hypertension Euthyroid sick syndrome Moderate episode of recurrent major depressive disorder (HCC) Type 2 diabetes mellitus without complication, without long-term current use of insulin (HCC) documented in this encounter Care Teams Train Brake Operator Relationship Specialty Start Date End Date Francis Benjamin MD [address] [address] PCP - General Family Medicine 12/10/22 10/18/24 Neftali Hicks DO [address] [place] [address] PCP - General Family Medicine 10/19/24 Jaylon Schroeder DO [address] [place] [address] Otolaryngology 08/15/24 Francis Benjamin MD [address] [address] Referring Physician Family Medicine 10/25/24 documented as of this encounter
--- OUTSIDE RECORDS SUMMARY | 2025-01-23 14:24 | XMS_ITS | Encounter Summary ---
Author Organization [facility] Address [address] [place] [address] Care Team Providers Care Egg Caser Name Role Phone Francis Benjamin MD Primary Care Provider Jaylon Schroeder Man DO Unavailable [phone] Neftali Hicks DO Primary Care Provider Francis Benjamin MD Unavailable [phone] Encounter Details Date Type Department Care Team (Late st Contact Info) Description 07/08/2023 Orders Only [facility] [address] [place] [address] Francis Benjamin MD [address] [address] Social History Tobacco Use Types Packs/Day Years Used Date Smoking Tobacco: Never Smokeless Tobacco: Never Alcohol Use Standard Drinks/Week Comments Yes 2 [...] 01/18/2023 How often do you attend chur ch or taoist services? More than 4 times [...] Recorded Patient Health Questionnaire-2 Score 0 07/12/2023 [facility] of Occupat ional Health - Occupational Stress [...] place to sleep or slept in a custodial (including now)? No 01/18/2023 Comments No Sex [...] [address] [place] [address] Neftali Hicks DO [address] [place] [address] documented as of this encounter Procedures Procedure Name Priority Date/Time Associated Diagnosis Comments LIPID PANEL Routine 07/01/2023 10:29 AM EST TSH+FREE T4 Routine 07/01/2023 10:29 AM EST PTH, INTACT AND CALCIUM Routine 07/01/20 10:29 AM EST URINALYSIS, COMPLETE Routine 07/01/2023 10:29 AM EST CBC (INCLUDES DIFF/PLT) Routine 07/01/20 10:29 AM EST CULTURE, URINE, ROUTINE Routine 07/01/20 10:29 AM EST VITAMIN B1 Routine 07/01/2023 10:29 AM EST HEMOGLOBIN A1C Routine 07/01/2023 10:29 AM EST VITAMIN B12 Routine 07/01/2023 10:29 AM EST COMPREHENSIVE METABOLIC PANEL Routine 07/01/2023 10:29 AM EST ECG 12-LEAD Routine 09/22/2017 8:48 AM EST documented in this encounter Results * CBC and differential (07/01/2023 10:29 AM EST) Blood Venous blood specimen / Unknown us Leandro Hensley MD LAB BLOOD ORDERABLES Final Resul t * Comprehensive metabolic panel (07/01/2023 10:29 AM EST) Blood Venous blood specimen / Unknown us Leandro Hensley MD LAB BLOOD ORDERABLES Final Resul t * Hemoglobin A1c (07/01/2023 10:29 AM EST) Blood Venous blood specimen / Unknown us Leandro Hensley MD LAB BLOOD ORDERABLES Final Resul t * LIPID PANEL (07/01/2023 10:29 AM EST) us Leandro Hensley MD LAB BLOOD ORDERABLES Final Resul t * Tsh+free t4 (07/01/2023 10:29 AM EST) Blood Venous blood specimen / Unknown us Leandro Hensley MD LAB BLOOD ORDERABLES Final Resul t * PTH, intact and calcium (07/01/2023 10:29 AM EST) Blood Venous blood specimen / Unknown Leandro Hensley MD LAB BLOOD ORDERABLES Final Resul t * Vitamin B12 (07/01/2023 10:29 AM EST) Blood Venous blood specimen / Unknown Leandro Hensley MD LAB BLOOD ORDERABLES Final Resul t * Urinalysis with microscopic (07/01/2023 10:29 AM EST) Urine Urine specimen obtained by clean catch procedure / Unknown Leandro Hensley MD LAB URINE ORDERABLES Final Resul t * Vitamin B1 (07/01/2023 10:29 AM EST) Blood Venous blood specimen / Unknown Leandro Hensley MD LAB BLOOD ORDERABLES Final Resul t * Urine culture (07/01/2023 10:29 AM EST) Urine Urine specimen obtained by clean catch procedure / Unknown Result [facility] Leandro Hensley MD LAB MICROBIOLOGY - GENERAL ORDER MARGE Final Result * ECG 12 lead (09/22/2017 8:48 AM EST) Francis Benjamin MD ECG ORDERABLES Final Result documented in this encounter Visit Diagnoses Not on filedocumented in this encounter Care Teams Egg Caser Relationship Specialty Start Date End Date Francis Benjamin MD [address] [address] (Fax) PCP - General Family Medicine 12/10/22 10/18/24 Neftali Hicks DO [address] [address] PCP - General Family Medicine 10/19/24 Jaylon Schroeder DO [address] [place] [address] Otolaryngology 08/15/24 Francis Benjamin MD 112 [place] [address] [address] Referring Physician Family Medicine 10/25/24 documented as of this encounter
--- OUTSIDE RECORDS SUMMARY | 2025-01-23 14:24 | XMS_ITS | Encounter Summary ---
Author Organization [facility] Address [address] [place] [address] Care Team Providers Care Fringing Machine Operator Name Role Phone Francis Benjamin MD Primary Care Provider [phone] Jaylon Schroeder Man DO Unavailable [phone] Neftali Hicks DO Primary Care Provider Francis Benjamin MD Unavailable [phone] Encounter Details Date Type Department Care Team (Late st Contact Info) Description 07/12/2023 Abstract [facility] [address] [place] [address] Francis Benjamin MD [address] [address] Social History Tobacco Use Types [...] often do you attend chur ch or mormonism services? More than 4 times per year 01/18/2023 Do you belong to any clubs o r organizations such as bahai groups, unions, fraternal or athletic groups, or [...] Recorded Patient Health Questionnaire-2 Score 0 07/12/2023 [facility] of Occupat ional Health - Occupational Stress [...] place to sleep or slept in a nursing home (including now)? No 01/18/2023 Comments No Sex and Gender Information Value Date Recorded Sex Assigned at Female 01/13/2023 7:52 PM EDT Legal Sex Female 6:48 PM EDT Gender Identity Female 01/13/2023 7:52 PM EDT Sexual Orientation Straight 01/13/2023 7: 53 PM EDT documented as of this encounter Functional Status * Over the past 2 weeks, how often have you been bothered by any of the following problems? Question Answer Date of Assessment Author Little interest or pleasure in doing things Not at all 07/12/2023 8:10 AM GABINO Seo HaydeREBECCA Feeling down, depressed, or hopeless Not at all 07/12/2023 8:10 AM Hayde Ocampo MA Patient Health Questionnaire -2 Score 0 07/12/2023 8:10 AM Hayde Ocampo MA documented as of this encounter Plan of Treatment Upcoming Encounters Date Type Department Care Team (Late st Contact Info) Description 10/22/2025 8:00 AM EDT Office Visit [facility] [address] [place] [address] Neftali Hicks DO [address] [place] [address] documented as of this encounter Visit Diagnoses Not on filedocumented in this encounter Care Teams Fringing Machine Operator Relationship Specialty Start Date End Date Francis Benjamin MD [address] [place] [address] (Fax) PCP - General Family Medicine 12/10/22 10/18/24 Neftali Hicks DO [address] [place] [address] PCP - General Family Medicine 10/19/24 Jaylon Schroeder DO [address] [place] [address] Otolaryngology 08/15/24 Francis Benjamin MD [address] [place] [address] Referring Physician Family Medicine 10/25/24 documented as of this encounter
--- OUTSIDE RECORDS SUMMARY | 2025-01-23 14:24 | XMS_ITS | Encounter Summary ---
Author Organization [facility] Address [address] [place] [address] Care Team Providers Care Imaging Engineer Name Role Phone Francis Benjamin MD Primary Care Provider Jaylon Schroeder DO Unavailable [phone] Neftali Hicks DO Primary Care Provider Francis Benjamin MD Unavailable [phone] Encounter Details Date Type Department Care Team (Late st Contact Info) Description 07/07/2023 Abstract [facility] [address] [place] [address] Leandro Hensley MD [address] [facility] [address] [place] [address] Social History Tobacco Use Types Packs/Day Years [...] How often do you attend chur or buddhist services? More than 4 times per year 01/18/2023 Do you belong to any clubs o r organizations such as restorationist groups, unions, fraternal or athletic groups, or [...] care, and heating? Not very hard 01/18/2023 [facility] of Occupat ional Health - Occupational Stress [...] place to sleep or slept in a fpc (including now)? No 01/18/2023 Comments No Sex [...] [address] [place] [address] Neftali Hicks DO [address] [place] [address] documented as of this encounter Visit Diagnoses Not on filedocumented in this encounter Care Teams Imaging Engineer Relationship Specialty Start Date End Date Francis Benjamin MD [address] [address] PCP - General Family Medicine 12/10/22 10/18/24 Neftali Hicks DO [address] [place] [address] PCP - General Family Medicine 10/19/24 Jaylon Schroeder DO [address] [place] [address] Otolaryngology 08/15/24 Francis Benjamin MD [address] [place] [address] Referring Physician Family Medicine 10/25/24 documented as of this encounter
--- OUTSIDE RECORDS SUMMARY | 2025-01-23 14:24 | XMS_ITS | Encounter Summary ---
Author Organization [facility] Address [address] [place] [address] Care Team Providers Care Tumbler Tender Name Role Phone Francis Benjamin MD Primary Care Provider JordanandresJaylon DO Unavailable [phone] Neftali Hicks DO Primary Care Provider Francis Benjamin MD Unavailable Encounter Details Date Type Department Care Team (Late st Contact Info) Description 02/16/2024 Orders Only [facility] [address] [place] [address] Leandro Hensley MD [address] [facility] [address] [place] [address] Social History Tobacco Use Types Packs/Day Years [...] often do you attend chur ch or tenriism services? More than 4 times per year [...] Recorded Patient Health Questionnaire-2 Score 0 07/12/2023 [facility] of Occupat ional Health - Occupational [...] place to sleep or slept in a residential (including now)? No 01/18/2023 Comments No Sex [...] [address] [place] [address] Neftali Hicks DO [address] [place] [address] documented as of this encounter Procedures Procedure Name Priority Date/Time Associated Diagnosis Comments CBC Routine 02/16/2024 10:01 AM EDT BASIC METABOLIC PANEL Routine 02/16/2024 10:01 AM EDT documented in this encounter Results * CBC (02/16/2024 10:01 AM EDT) Blood Venous blood specimen / Unknown us Leandro Hensley MD LAB BLOOD ORDERABLES Final Resul t * Basic metabolic panel (02/16/2024 10:01 AM EDT) Blood Venous blood specimen / Unknown us Leandro Hensley MD LAB BLOOD ORDERABLES Final Resul t documented in this encounter Visit Diagnoses Not on filedocumented in this encounter Care Teams Tumbler Tender Relationship Specialty Start Date End Date Francis Benjamin MD [address] [address] PCP - General Family Medicine 12/10/22 10/18/24 Neftali Hicks DO [address] [place] [address] PCP - General Family Medicine 10/19/24 Jaylon Schroeder DO [address] [place] [address] Otolaryngology 08/15/24 Francis Benjamin MD [address] [address] (Fax) Referring Physician Family Medicine 10/25/24 documented as of this encounter
--- OUTSIDE RECORDS SUMMARY | 2025-01-23 14:24 | XMS_ITS | Clinical Summary ---
Author Organization [facility] Address [address] [place] [address] Care Team Providers Care Zoo Director Name Role Phone Francis Benjamin MD Primary Care Provider [phone] Allergies No known active allergies Medications glipiZIDE (Glucotrol) 5 mg tablet TAKE 1 TABLET BY MOUTH TWICE DAILY (IN THE MORNING and IN THE EVENING) BEFORE MEALS 3 Active liothyronine (Cytomel) 25 mcg tablet TAKE 1/2 (ONE-HALF) OF A TABLET BY MOUTH TWICE DAILY ON AN EMPTY STOMACH 3 Active metFORMIN XR (Glucophage-XR) 750 mg 24 hr tablet TAKE 1 TABLET BY MOUTH TWICE DAILY (IN THE MORNING and IN THE EVENING) BEFORE MEALS DO NOT CRUSH, CHEW, OR SPLIT 3 Active DULoxetine (Cymbalta) [address] capsule TAKE 2 CAPSULES BY MOUTH ONCE DAILY at the same time each day 3 Active metoprolol tartrate (Lopressor) 25 mg tabletIndication s:Shortness of breath,Palpitati ons Take 1 tablet (25 mg) by mouth two times daily. 60 tablet 5 08/08/19 26 Active nitroglycerin (Nitrostat) 0.4 mg SL tabletIndication s:Palpitations,C hest pain, unspecified type Place 1 tablet (0.4 mg) under the tongue every 5 (five) minutes if needed for chest pain. May repeat dose every 5 minutes for up to 3 doses total. 100 tablet 11 5 08/08/19 26 Active Active Problems Problem Noted Date Diagnosed Date Essential hypertension 08/08/2024 Chest pain 08/08/2024 Palpitations 08/08/2024 Shortness of breath 08/08/2024 Social History Tobacco Use Types Packs/Day Years Used Date Smoking Tobacco: Never Smokeless Tobacco: Never Tobacco Cessation:Counseling Given: Not Answered Alcohol Use Standard Drinks/Week Comments Not Asked 0 (1 standard drink = 0.6 oz pur e alcohol) occassional [place] Safety & Environment Answer Date Rec orded Fear of Current or Ex-Partner Not on file Emotionally Abused Not on file 09/16/2023 Physically Abused Not on file 09/16/2023 Sexually Abused Not on file 09/16/2023 Physically or Sexually Abused Not on file Comments Unknown Sex and Gender Information Value Date Recorded Sex Assigned at Not on file Legal Sex Female 12:38 PM EDT Gender Identity Not on file Sexual Orientation Not on file Last Filed Vital Signs Vital Sign Reading Time Taken Comments Blood Pressure 128/62 09/14/2024 2:46 PM EST Pulse 90 09/14/2024 2:46 PM EST Temperature - - Respiratory Rate - - Oxygen Saturation 98% 09/14/2024 2:46 PM EST Inhaled Oxygen Concentration - - Weight 98.9 kg (218 lb) 09/14/2024 2:46 PM EST Height 165.1 cm (5' 5 ) 09/14/2024 2:46 PM EST Body Mass Index 36.28 09/14/2024 2:46 PM EST Plan of Treatment Health Maintenance Due Date Last Done Comments CT Colonography 1969 Colonoscopy 1969 Colorectal Cancer Screening 1969 FIT-DNA 1969 FIT 1969 FOBT 1969 Sigmoidoscopy 1969 Diabetes: Retinopathy Screening 09/30/1979 Depression Screening 1981 Diabetes: Urine Protein Screening 1988 Hepatitis B Vaccines (1 of 3 - 19+ 3-dose series) 1988 Pap Smear 1990 Adult Tetanus 09/30/1991 Cervical Cancer Screening 09/30/1999 HPV/Cotest 09/30/1999 Zoster Vaccines (1 of 2) 09/30/2019 COVID-19 Vaccine (3 - 2023-2 5 season) 2024 09/03/2020, 08/13/2020 Diabetes: Hemoglobin A1C 10/01/2024 07/03/2024 Mammogram 02/19/2025 02/19/2023 Influenza Vaccine (Season Ended) 2025 05/01/2021 HIB Vaccines Aged Out No longer eligi ble based on patient's age to complete this topic HPV Vaccines Aged Out No longer eligi ble based on patient's age to complete this topic IPV Vaccines Aged Out No longer eligi ble based on patient's age to complete this topic Meningococcal B Vaccine Aged Out No l onger eligible based on patient's age to complete this topic Meningococcal Vaccine Aged Out No noel esthela eligible based on patient's age to complete this topic Pneumococcal Vaccine: Pediatrics (0 to 5 Years) and At-Risk Patients (6 to 64 Years) Aged Out No longer eligible b ased on patient's age to complete this topic Rotavirus Vaccines Aged Out No longer eligible based on patient's age to complete this topic Insurance [facility] Care Teams Zoo Director Relationship Specialty Start Date End Date Francis Benjamin MD [address] [place] [address] PCP - General 08/24/23
--- OUTSIDE RECORDS SUMMARY | 2025-01-23 14:24 | XMS_ITS | Referral Summary ---
Author Organization [facility] Address [address] [place] [address] Care Team Providers Care Front Tender Name Role Phone Francis Benjamin MD Primary Care Provider [phone] Allergies No known active allergies Medications glipiZIDE [...] 09/14/2024 2:46 PM EST Plan of Treatment Not on file Insurance [facility] Care Teams Front Tender Relationship Specialty Start Date End Date Francis Benjamin MD [address] [place] [address] PCP - General 08/24/23
--- OUTSIDE RECORDS SUMMARY | 2025-01-23 14:24 | XMS_ITS | Encounter Summary ---
Author Organization [facility] Address [address] [place] [address] Care Team Providers Care Process Technician Name Role Phone Francis Benjamin MD Primary Care Provider [phone] Jaylon Schroeder Man DO Unavailable [phone] Neftali Hicks DO Primary Care Provider [phone] Francis Benjamin MD Unavailable [phone] Encounter Details Date Type Department Care Team (Late st Contact Info) Description 01/20/2024 Orders Only [facility] [address] [place] [address] Francis Benjamin MD [address] [place] [address] Type 2 diabetes mellitus with hyperglycemia, with [...] How often do you attend chur or jewish services? More than 4 times per year 01/18/2023 Do you belong to any clubs o r organizations such as jewish groups, unions, fraternal or athletic groups, or [...] Recorded Patient Health Questionnaire-2 Score 0 07/12/2023 [facility] of Occupat ional Health - Occupational Stress [...] No 01/18/2023 Housing Stability Vital Sign Answer Telol e Recorded In the last 12 months, [...] place to sleep or slept in a snf (including now)? No 01/18/2023 Comments No Sex [...] [address] [place] [address] Neftali Hicks, [address] [place] [address] documented as of this encounter Procedures Procedure Name Priority Date/Time Associated Diagnosis Comments HEMOGLOBIN A1C Routine 02/28/2024 11:25 AM EDT Type 2 diabetes mellitus with hyperglycemia, with long-term current use of insulin (HCC) documented in this encounter Results * (ABNORMAL) Hemoglobin A1c (02/28/2024 11:25 AM EDT) Hemoglobin A1C 6.9(H) <5.7 % of total Hgb [facility] Comment: For someone without known diabetes, a [...] change in test platforms from the Montes Administrative Assistant Coordinator to the Rosana gia [id number] may have shifted HbA1c results compared to historical results. Based on laboratory validation testing conducted at [facility], the Rosana platform relative to the [...] recommended. Blood Venous blood specimen / Unknown 02/28/2024 11:25 AM EDT 02/28/2024 11:25 AM EDT Narrative Resulting Agency Comment Performing Organization Information Site ID: QPT Name: [employer] [facility] Address: [address] [place] [address], [address] [place] [id number] Director: Leonard Machado MD Francis Benjamin MD LAB BLOOD ORDERABLES Final R esult [facility] documented in this encounter Visit Diagnoses Diagnosis Type 2 diabetes mellitus with hyperglycemia, with long-term current use of insulin (HCC) documented in this encounter Care Teams Process Technician Relationship Specialty Start Date End Date Francis Benjamin MD [address] [place] [address] PCP - General Family Medicine 12/10/22 10/18/24 Neftali Hicks DO [address] [place] [address] PCP - General Family Medicine 10/19/24 Jaylon Schroeder DO [address] [place] [address] Otolaryngology 08/15/24 Francis Benjamin MD 112 [facility] 100 [place] [address] Referring Physician Family Medicine 10/25/24 documented as of this encounter
--- OUTSIDE RECORDS SUMMARY | 2025-01-23 14:24 | XMS_ITS | Encounter Summary ---
Author Organization [facility] Address [address] [place] [address] Care Team Providers Care Roll Machine Operator Name Role Phone Francis Benjamin MD Primary Care Provider Jaylon Schroeder Man DO Unavailable [phone] Neftali Hicks DO Primary Care Provider [phone] Francis Benjamin MD Unavailable [phone] Reason for Visit * Reason Comments Med Refill Encounter Details Date Type Department Care Team (Late st Contact Info) Description 01/18/2024 Refill [facility] [address] [facility] [place] [address] Francis Benjamin MD 112 [facility] [address] [place] [address] Type 2 diabetes mellitus with hyperglycemia, [...] How often do you attend chur or moravian services? More than 4 times per year 01/18/2023 Do you belong to any clubs o r organizations such as alevism groups, unions, fraternal or athletic groups, or [...] Recorded Patient Health Questionnaire-2 Score 0 07/12/2023 [facility] [place] of Occupat ional Health - Occupational Stress [...] place to sleep or slept in a penitentiary (including now)? No 01/18/2023 Comments No Sex [...] [address] [place] [address] Neftali Hicks DO [address] [place] [address] documented as of this encounter Visit Diagnoses Diagnosis Type 2 diabetes mellitus with hyperglycemia, with long-term current use of insulin (HCC) documented in this encounter Care Teams Roll Machine Operator Relationship Specialty Start Date End Date Francis Benjamin MD [address] [place] [address] (Fax) PCP - General Family Medicine 12/10/22 10/18/24 Neftali Hicks DO [address] [place] [address] PCP - General Family Medicine 10/19/24 Jaylon Schroeder DO [address] [place] [address] Otolaryngology 08/15/24 Francis Benjamin MD [address] [place] [address] Referring Physician Family Medicine 10/25/24 documented as of this encounter
--- OUTSIDE RECORDS SUMMARY | 2025-01-23 14:25 | XMS_ITS | Encounter Summary ---
Author Organization [facility] Address [address] [place] [address] Care Team Providers Care Purchasing Engineer Name Role Phone Francis Benjamin MD Primary Care Provider Jaylon Scrhoeder Man DO Unavailable [phone] Neftali Hicks DO Primary Care Provider Francis Benjamin MD Unavailable [phone] Encounter Details Date Type Department Care Team (Late st Contact Info) Description 07/04/2024 Orders Only [facility] [address] [place] [address] Francis Benjamin MD [address] [place] [address] Social History Tobacco Use Types Packs/Day Years [...] often do you attend chur ch or mormon services? More than 4 times per year 01/18/2023 Do you belong to any clubs o r organizations such as latter-day groups, unions, fraternal or athletic groups, or [...] Recorded Patient Health Questionnaire-2 Score 0 07/12/2023 [facility] of Occupat ional Health - Occupational Stress [...] place to sleep or slept in a mcfp (including now)? No 01/18/2023 Comments No Sex [...] [address] [place] [address] Neftali Hicks DO [address] [place] [address] documented as of this encounter Visit Diagnoses Not on filedocumented in this encounter Care Teams Purchasing Engineer Relationship Specialty Start Date End Date Francis Benjamin MD [address] [address] PCP - General Family Medicine 12/10/22 10/18/24 Neftali Hicks DO [address] [place] [address] PCP - General Family Medicine 10/19/24 Jaylon Schroeder DO [address] [place] [address] Otolaryngology 08/15/24 Francis Benjamin MD [address] [address] Referring Physician Family Medicine 10/25/24 documented as of this encounter
--- OUTSIDE RECORDS SUMMARY | 2025-01-23 14:25 | XMS_ITS | Encounter Summary ---
Author Organization [facility] Address [address] [place] [address] Care Team Providers Care Fondant Machine Operator Name Role Phone Francis Benjamin MD Primary Care Provider Jaylon Schroeder Man DO Unavailable [phone] Neftali Hicks DO Primary Care Provider Francis Benjamin MD Unavailable [phone] Encounter Details Date Type Department Care Team (Late st Contact Info) Description 05/26/2023 Orders Only [facility] [address] [place] [address] Francis Benjamin MD [address] [address] Social History Tobacco Use Types [...] often do you attend chur ch or jain services? More than 4 times per year 01/18/2023 Do you belong to any clubs o r organizations such as advent groups, unions, fraClari or athletic groups, or school groups? No [...] care, and heating? Not very hard 01/18/2023 [facility] of Occupat ional Health - Occupational [...] [address] [place] [address] Neftali Hicks, DO [address] [place] [address] documented as of this encounter Visit Diagnoses Not on filedocumented in this encounter Care Teams Fondant Machine Operator Relationship Specialty Start Date End Date Francis Benjamin MD [address] [address] PCP - General Family Medicine 12/10/22 10/18/24 Neftali Hicks DO [address] [place] [address] PCP - General Family Medicine 10/19/24 Jaylon Schroeder DO [address] [place] [address] Otolaryngology 08/15/24 Francis Benjamin MD [address] [place] [address] Referring Physician Family Medicine 10/25/24 documented as of this encounter
--- OUTSIDE RECORDS SUMMARY | 2025-01-23 14:25 | XMS_ITS | Clinical Summary ---
Author Organization [facility] Address [id number] [address] [place] [address] Care Team Providers Care Induction Heat Treater Name Role Phone Francis Benjamin MD Primary Care Provider [phone] Allergies Active Allergy Reactions Criticality Noted Date Comments Pioglitazone Swelling Medium 01/18/2023 In ankles Medications acetaminophen (TYLENOL EXTRA STRENGTH) 500 mg tablet Take 1 tablet (500 mg total) by mouth every 6 (six) hours as needed. Active aspirin 81 mg chewable tablet Chew 1 tablet (81 mg total) and swallow 3 (three) times a week. MWF Active cloNIDine (CATAPRES) 0.1 mg tablet Take 1 tablet (0.1 mg total) by mouth as needed. 10/15/2022 Active gabapentin (NEURONTIN) 300 mg capsule Take 1 capsule (300 mg total) by mouth daily as needed. 01/28/2023 Active liothyronine (CYTOMEL) 25 MCG tablet Take 1 tablet (25 mcg total) by mouth in the morning. 02/10/2023 Active losartan (COZAAR) 100 mg tablet Take 1 tablet (100 mg total) by mouth in the morning. 09/21/2022 Active metFORMIN XR (GLUCOPHAGE XR) 500 mg 24 hr tablet Take 1 tablet (500 mg total) by mouth in the morning and 1 tablet (500 mg total) before bedtime. Active omeprazole (PriLOSEC) 10 mg capsule Take 1 capsule (10 mg total) by mouth every morning before breakfast. Active Social History Tobacco Use Types Packs/Day Years Used Date Smoking Tobacco: Never Smokeless Tobacco: Never Tobacco Cessation:Counseling Given: Not Answered Alcohol Use Standard Drinks/Week Comments Not Currently 0 (1 standard drink = 0.6 oz pur e alcohol) Childcare Answer Date Recorded Childcare Unknown 01/04/2019 Employment Answer Date Recorded Employment Unknown 01/04/2019 Comments No Sex and Gender Information Value Date Recorded Sex Assigned at Female 04/11/2023 8:24 PM EDT Legal Sex Female 11:35 AM EDT Gender Identity Female 04/11/2023 8:24 PM EDT Sexual Orientation Straight 04/11/2023 8: 24 PM EDT Last Filed Vital Signs Vital Sign Reading Time Taken Comments Blood Pressure 134/78 04/14/2023 10:27 AM EDT Pulse 94 04/14/2023 10:27 AM EDT Temperature 36.3 C (97.3 F) 04/14/2023 9:12 AM EDT Respiratory Rate 11 04/14/2023 10:27 AM EDT Oxygen Saturation 93% 04/14/2023 10:27 AM EDT Inhaled Oxygen Concentration - - Weight 147.4 kg (325 lb) 04/14/2023 6:25 AM EDT Height 166.4 cm (5' 5.5 ) 04/14/2023 6:25 AM EDT Body Mass Index 53.26 04/14/2023 6:25 AM EDT Plan of Treatment Health Maintenance Due Date Last Done Comments Depression Screening 1981 DTaP,Tdap and Td Vaccines (1 - Tdap) 1988 Zoster (Shingles) Vaccine (1 of 2) 09/30/2019 COVID-19 Vaccine (3 - season) 03/26/202403/2021, 08/13/2020 Adult BMI Screening 04/14/2024 04/14/2023 Tobacco Screening 04/14/2024 04/14/2023 Influenza Vaccine 03/26/2025 05/01/2021 Medical Devices Implanted Type Area Film Flat Inspector Device Identifier Shelf Expiration Date Model / Serial / Lot Healicoil Knotless Regenesorb Suture Cord 5.5 Mm Self Tapping Implanted:Qty : 1 on 04/14/2023 by Daniel Jean Baptiste DO at [facility] Other Implant Right: Shoulder [employer]i [employer] Nephew 01/05/2026 [id number] / N/A / [id number] Healicoil Knotless Regenesorb Suture Cord 5.5 Mm Self Tapping Implanted:Qty : 1 on 04/14/2023 by Daniel Jean Baptiste DO at [facility] Other Implant Right: Shoulder [employer] 01/05/2026 [id number] / N/A / [id number] Healicoil Regenesorb 4.75mm Suture Cord With One Ultratape Blue And One Ultrabraid #2 Sture Cobraid Black Implanted:Qty : 1 on 04/14/2023 by Daniel Jean Baptiste DO at [facility] Other Implant Right: Shoulder [employer] 09/23/2025 [id number] / N/A / [id number] Healicoil Knotless Regenesorb Suture Cord 5.5mm Self Tapping Implanted:Qty : 1 on 04/14/2023 by Daniel Jean Baptiste DO at [facility] Other Implant Right: Shoulder [employer] 01/05/2026 [id number] / N/A / [id number] Insurance [address] [place] [address] [facility] Care Teams Induction Heat Treater Relationship Specialty Start Date End Date Francis Benjamin MD PCP - General Family Medicine 03/24/23
--- OUTSIDE RECORDS SUMMARY | 2025-01-23 14:25 | XMS_ITS | Encounter Summary ---
Author Organization [facility] Address [address] [place] [address] Care Team Providers Care Shake Table Operator Name Role Phone Francis Benjamin MD Primary Care Provider [phone] Jaylon Schroeder Man DO Unavailable [phone] Neftali Hicks DO Primary Care Provider Francis Benjamin MD Unavailable [phone] Encounter Details Date Type Department Care Team (Late st Contact Info) Description 02/04/2023 Abstract [facility] [address] [place] [address] Francis Benjamin MD [address] [address] Social History Tobacco Use Types Packs/Day Years Used Date Smoking Tobacco: Never Smokeless Tobacco: Never Tobacco Cessation:Counseling Given: Not Answered Alcohol Use Standard Drinks/Week Comments Yes 4 (1 standard drink = 0.6 oz pur [...] How often do you attend chur or pentecostal services? More than 4 times per year 01/18/2023 Do you belong to any clubs o r organizations such as caodaism groups, unions, fraEx[employer] or athletic groups, or school groups? No [...] care, and heating? Not very hard 01/18/2023 [facility] of Occupat ional Health - Occupational Stress [...] place to sleep or slept in a jail (including now)? No 01/18/2023 Comments Unknown Sex and Gender Information Value Date Recorded Sex Assigned at Female 01/13/2023 7:52 PM EDT Legal Sex Female 6:48 PM EDT Gender Identity Female 01/13/2023 7:52 PM EDT Sexual Orientation Straight 01/13/2023 7: 53 PM EDT COVID-19 Exposure Response Date Recorded In the last 10 days, have yo u been in contact with someone who was confirmed or suspected to have Coronavirus/COVID-19? No / Unsure 01/18/2023 9:55 AM EDT documented as of this encounter Plan of Treatment Upcoming Encounters Date Type Department Care Team (Late st Contact Info) Description 10/22/2025 8:00 AM EDT Office Visit [facility] [address] [place] [address] Neftali Hicks, [address] [place] [address] documented as of this encounter Visit Diagnoses Not on filedocumented in this encounter Care Teams Shake Table Operator Relationship Specialty Start Date End Date Francis Bnejamin MD [address] [place] [address] (Fax) PCP - General Family Medicine 12/10/22 10/18/24 Neftali Hicks DO [address] [place] [address] PCP - General Family Medicine 10/19/24 Jaylon Schroeder DO [address] [place] [address] Otolaryngology 08/15/24 Francis Benjamin MD [address] [place] [address] Referring Physician Family Medicine 10/25/24 documented as of this encounter
--- OUTSIDE RECORDS SUMMARY | 2025-01-23 14:25 | XMS_ITS | Clinical Summary ---
Author Organization [facility] Address [address] [place] [address] Care Team Providers Care Azure Architect Name Role Phone Jaylon Schroeder DO Unavailable [phone] Neftali Hicks DO Primary Care Provider [phone] Francis Benjamin MD Unavailable Allergies Active Allergy Reactions Criticality Noted Date Comments Pioglitazone Swelling Medium 01/18/2023 Medications acetaminophen (Tylenol) 500 MG tablet Take 500 mg by mouth every 6 (six) hours if needed. 1-2 tablet as needed Orally every 6 hrs Active gabapentin (Neurontin) 300 MG capsuleIndication s:Cervical radiculopathy Take 1 to 2 tablets at bedtime as needed. 180 capsule 01/29/20 23 Active nitroglycerin (Nitrostat) 0.4 MG SL tablet every 5 (five) minutes if needed 08/08/19 25 Active DULoxetine (Cymbalta) [address] capsuleIndication s:Moderate episode of recurrent major depressive disorder (HCC) Take 2 capsules (40 mg) by mouth 1 (one) time each day at the same time 180 capsule 08/16/19 25 025 Active Multiple Vitamin (MULTIVITAMIN PO) Take by mouth Active rOPINIRole (Requip) 1 MG tabletIndications :Restless Leg Syndrome Take 1 tablet (1 mg) by mouth as needed at bedtime (restless leg) 90 tablet 3 10/20/19 25 03/27/2 026 Active olmesartan (BENIcar) 20 MG tabletIndications :Primary hypertension Take 1 tablet (20 mg) by mouth Daily 90 tablet 3 01/24/20 25 026 Active magnesium 200 MG tablet Take by mouth 025 Discontinued Thiamine HCl (vitamin B-1) 250 MG tablet Take 250 mg by mouth Daily 025 Discontinued Active Problems Problem Noted Date Diagnosed Date History of Isabell-en-Y gastric bypass 05/02/2024 Overview (05/02/2024): 01/2024 Abnormal EKG 07/12/2023 BMI 50.0-59.9, adult 03/11/2023 Arthritis of left hip 02/04/2023 Arthritis of left knee 02/04/2023 Arthritis of right knee 02/04/2023 Chronic fatigue syndrome 02/04/2023 Essential hypertension 02/04/2023 Euthyroid sick syndrome 02/04/2023 Gastroesophageal reflux disease without esophagi tis 02/04/2023 H/O hysterectomy for benign disease 02/04/2023 Moderate episode of recurrent major depressive d isorder 02/04/2023 Class 2 severe obesity due t o excess calories with serious comorbidity and body mass index (BMI) of 36.0 to 36.9 in adult 02/04/2023 Postmenopausal symptoms 02/04/2023 Restless leg syndrome 02/04/2023 Skin sensation disturbance 02/04/2023 Cervical radiculopathy 01/18/2023 Type 2 diabetes mellitus wit hout complication, without long-term current use of insulin 01/18/2023 Assessment & Plan (09/25/2024 7:44 PM EST): During the appointment today all pertinent labs, imaging, health maintenance, and glucose readings were reviewed. Encouraged to check blood glucose throughout the day with some fasting and some PP readings. They are to bring their glucose meter/cgm in to all appointments. All of the patients questions, treatment options, and current care plan and goals were discussed. A copy of this along with pertinent instructions were given to the patient at the end of the appointment. The patient voices understanding of all of this and is to call in between appointments if they have any problems or questions. Ronan Menon is doing very well and encouraged on this. , Discussed dietary changes at length. Encouraged to limit simple carbs and focus more on healthy protein/fat with all meals and snacks. They should also avoid any sugary drinks. , Discussed importance of checking blood glucose regularly and bringing them in to their appointment in order for me to better adjust their medications. , Instructions given today include: Dietary education. She is currently in remission of her diabetes after having bariatric surgery. She is doing well with lifestyle changes and weight loss. No medications are needed at this time. Will see her as needed. Resolved Problems Problem Noted Date Diagnosed Date Resolved Date Type 2 diabetes mellitus wit h hyperglycemia, with long-term current use of insulin 12/22/2023 Internal derangement of left knee 02/04/2023 10/19/2024 History of medication noncompliance 02/04/2023 10/19/2024 LILLIANA (obstructive sleep apnea) 02/04/2023 10/19/2024 Primary osteoarthritis 02/04/202310/19 Degeneration of cervical intervertebral disc 10/19/2024 Pain in anterior right upper extremity 12/17/2022 10/19/2024 Right anterior shoulder pain 12/17/2022 10/19/2024 Encounters Date Type Department Care Team Description 01/23/2025 1:20 PM EDT Office Visit [facility] [address] [place] [address] Neftali Hicks, DO Primary hypertension (Primary Dx); Left facial numbness 01/23/2025 Travel 11/15/2024 Refill [facility] [address] [place] [address] Francis Benjamin MD Moderate episode of recurrent major depressive disorder (HCC) 10/25/2024 4:00 PM EDT Office Visit [facility] [place] [address] [place] [phone] Jaylon Schroeder, DO Status post partial thyroidectomy (Primary Dx); Vocal cord paresis 10/25/2024 Bamboo flowsheet [facility] [address] [address] [place] [address] Jaylon Schroeder W, DO 10/25/2024 Travel 10/24/2024 Telephone [facility] [address] [place] [address] Felicia Tineo MA from Last 3 Months Immunizations Immunization Administration Dates Next Due Influenza, injectable, quadrivalent, preservativ e free 05/01/2021 Family History Medical History Relation Name Comments No Known Problems Daughter Diabetes Father Heart disease Father Hypertension Father Aneurysm Mother Hypertension Mother Stroke Mother Brain Aneurysm Other 1 Aunt Brain Aneurysm Other 2 maternal cousin No Known Problems Sister Relation Name Status Comments Daughter 1 daughter Father (Age 55) Mother Alive Other 1 Aunt 2 aunts Other 2 maternal cousin 1 maternal c ousin Sister 1 sister Social History Tobacco Use Types Packs/Day Years [...] week 01/18/2023 How often do you attend [facility] or restorationist services? More than 4 times per year 01/18/2023 Do you belong to any clubs o r organizations such as sabianism groups, unions, fraternal or athletic groups, or [...] Recorded Patient Health Questionnaire-2 Score 0 01/23/2025 [facility] - Occupational Stress Questionnaire Answer Date Recorded [...] place to sleep or slept in a long-term (including now)? No 01/18/2023 Comments No Sex and Gender Information Value Date Recorded Sex Assigned at Female 01/13/2023 7:52 PM EDT Legal Sex Female 6:48 PM EDT Gender Identity Female 01/13/2023 7:52 PM EDT Sexual Orientation Straight 01/13/2023 7: 53 PM EDT Last Filed Vital Signs Vital Sign Reading Time Taken Comments Blood Pressure 150/92 01/23/2025 1:22 PM EDT Pulse 72 01/23/2025 1:22 PM EDT Temperature 36.6 C (97.9 F) 01/23/2025 1:22 PM EDT Respiratory Rate 16 07/21/2024 11:31 AM EST Oxygen Saturation 99% 01/23/2025 1:22 PM EDT Inhaled Oxygen Concentration - - Weight 100 kg (221 lb) 01/23/2025 1:22 PM EDT Height 165.1 cm (5' 5 ) 01/23/2025 1:22 PM EDT Body Mass Index 36.78 01/23/2025 1:22 PM EDT Plan of Treatment Upcoming Encounters Date Type Department Care Team (Late st Contact Info) Description 10/22/2025 8:00 AM EDT Office Visit [facility] [address] [place] [address] Neftali Hicks, [address] [place] [address] Health Maintenance Due Date Last Done Comments CT Colonography 1970 Colonoscopy 1969 Colorectal Cancer Screening 1970 FIT-DNA 1970 FIT 1970 FOBT 1970 Sigmoidoscopy 1970 Diabetes: Retinopathy Screening 02/08/2023 Mammogram 02/20/2024 02/19/2023, 02/24, 10/24/2018, Additional history exists Diabetes: Hemoglobin A1C 12/26/2024 025, 07/03/2024, 02/28/2024, Additional history exists Influenza Vaccine (#1) 2025 05/01/2021 Diabetes: Urine Protein Screening 10/19/2025 10/19/2024, 09/21/2022, 05/10/2019, Additional history exists Procedures Procedure Name Priority Date/Time Associated Diagnosis Comments T4 (THYROXINE), TOTAL Routine 10/24/2024 10:04 AM EDT Status post partial thyroidectomy T3, TOTAL Routine 10/24/2024 10:04 AM EDT Status post partial thyroidectomy TSH Routine 10/24/2024 10:04 AM EDT Status post partial thyroidectomy MICROALBUMIN / CREATININE URINE RATIO Routine 10/19/2024 9:19 AM EDT Type 2 diabetes mellitus without complication, without long-term current use of insulin (HCC) POCT GLYCOSYLATED HEMOGLOBIN (HGB A1C) Routine 09/25/2024 3:26 PM EST Type 2 diabetes mellitus without complication, without long-term current use of insulin (HCC) BI MAMMOGRAM DIAGNOSTIC TOMOSYNTHESIS BILATERAL Routine 02/19/2023 2:33 PM EDT Breast screening Mass of right breast, unspecified quadrant COLOR FUNDUS PHOTOGRAPHY - OU - BOTH EYES Routine 02/08/2021 12:00 PM EDT from Last 3 Months or Most Recently Relevant to Health Maintenance Results * T3 (10/24/2024 10:04 AM EDT) T3 Triiodothyronine 102 71 - 180 ng/dL [facility] Blood Venous blood specimen / Unknown 10/24/2024 10:04 AM EDT 10/24/2024 Narrative [facility] - 10/25/2024 6:07 AM EDT Performed at: [facility] [id number] Squad Boss: Adama Burgos PhD, Phone: [phone] Jaylon Schroeder DO LAB BLOOD ORDERABLES Final Result Performing Organization Address [facility] Co de Phone Number [facility] * TSH (10/24/2024 10:04 AM EDT) Pathologist [facility] TSH 1.760 0.450 - 4.500 uIU/mL [facility] Blood Venous blood specimen / Unknown 10/24/2024 10:04 AM EDT 10/24/2024 Narrative [facility] - 10/25/2024 6:07 AM EDT Performed at: [facility] [address], [address], [place] [id number] Squad Boss: Lore Crystal MD, Phone: [phone] Jaylon Schroeder DO LAB BLOOD ORDERABLES Final Result Performing Organization Address [facility] de Phone Number [facility] * T4 (10/24/2024 10:04 AM EDT) Pathologist [facility] THYROXINE (T4) TOTAL 7.5 4.5 - 12.0 ug/dL [facility] Blood Venous blood specimen / Unknown 10/24/2024 10:04 AM EDT 10/24/2024 Narrative [facility] - 10/25/2024 6:07 AM EDT Performed at: [facility] [id number] Squad Boss: Adama Bugros PhD, Phone: [phone] Jaylon Schroeder DO LAB BLOOD ORDERABLES Final Result Performing Organization Address [facility] Co de Phone Number [facility] * Microalbumin / creatinine, urine ratio (10/19/2024 9:19 AM EDT) Creat Ur 101.0 Not Estab. mg/dL [facility] Albumin Ur <3.0 Not Estab. ug/mL [facility] Alb/Creat Ratio Urine <3 0 - 29 mg/g creat [facility] Comment: Normal: 0 - 29 Moderately increased: 30 - 300 Severely increased: >300 Urine Urine specimen obtained by clean catch procedure / Unknown 10/19/2024 9:19 AM EDT 10/19/2024 Narrative [facility] - 10/20/2024 6:06 AM EDT Performed at: 02 - [facility] [id number] Squad Boss: Adama Burgos PhD, Phone: [phone] us Neftali Hicks DO LAB URINE ORDERABLES Final R esult [facility] * POCT glycosylated hemoglobin (Hb A1C) docked device (09/25/2024 3:26 PM EST) Hemoglobin A1C 6.2 Blood Venous blood specimen / Unknown 09/25/2024 3:26 PM EST us Emmy Herrera DO POINT OF CARE TEST ENTER/E DIT ORDERABLES Final Result * Bilateral diagnostic mammogram with tomosynthesis (02/19/2023 2:33 PM EDT) Anatomical Region Laterality Modality Breast Bilateral Mammography 02/19/2023 3:03 PM EDT Impressions 02/19/2023 3:09 PM EDT BIRADS 3 - Probably Benign Recommended follow-up: Breast Ultrasound in 6 Months Board Certified Radiologists. Accredited by the ACR and FDA. MAMMOGRAPHY IS VERY IMPORTANT TO YOUR HEALTH. THE [employer] GUIDELINES RECOMMEND THAT WOMEN 40 YEARS OF AGE AND OLDER SHOULD HAVE A MAMMOGRAM EVERY YEAR. A REMINDER LETTER WILL BE SENT AT THE APPROPRIATE TIME. THIS FACILITY UTILIZES A REMINDER SYSTEM TO ENSURE ALL PATIENTS RECEIVE REMINDER NOTIFICATIONS AT THE APPROPRIATE TIME BASED ON THE RECOMMENDATIONS OF THIS EXAM. THIS INCLUDES REMINDERS FOR ROUTINE SCREENING MAMMOGRAMS, DIAGNOSTIC MAMMOGRAMS IN WHICH THE PATIENT IS ASKED TO RETURN FOR ADDITIONAL VIEWS, OR OTHER BREAST IMAGING INTERVENTIONS WHEN APPROPRIATE. THE PATIENT WILL BE PLACED IN THE APPROPRIATE REMINDER SYSTEM INCLUDING A REMINDER AT THE APPROPRIATE TIME FOR ANY PENDING ADDITIONAL VIEWS. ELECTRONICALLY SIGNED BY: Tristin Reddy MD Narrative 02/19/2023 3:09 PM EDT EXAMINATION: BI US BREAST LIMITED LEFT, BI MAMMOGRAM DIAGNOSTIC TOMOSYNTHESIS BILATERAL CLINICAL HISTORY: Left breast lump. COMPARISON: Mammogram from 03/21/2021. RESULT: 3-D tomosynthesis imaging of the bilateral breast(s) was performed. Ultrasound of the left breast was performed. Density: Almost entirely fatty [1] There are no suspicious masses or asymmetries, areas of architectural distortion or suspicious areas of microcalcifications mammographically. Ultrasound recommended to evaluate the area of lump in the left breast. On the left breast ultrasound at the area of lump around 4:00, there is a small hyperechoic lesion measuring approximately 1.2 x 0.7 x 1.0 cm, likely representing small hematoma or fat necrosis. No associated internal vascularity or posterior shadowing. This is probably benign. 6-month follow-up recommended. Francis Benjamin MD IMG BI PROCEDURES Final Resu lt * Color Fundus Photography - OU - Both Eyes (02/08/2021 12:00 PM EDT) Anatomical Region Laterality Modality Head Fundus Photograp hy 02/08/2021 12:0 0 PM EDT Narrative 02/08/2021 12:00 PM EDT PERFORMED AT [facility] LOCATION:[id number] Procedure Note CONVERSION, GENERIC - 12/09/[address] [facility] LOCATION:[id number] Francis Benjamin MD OPHTH PHOTOGRAPHY Final Resu lt from Last 3 Months or Most Recently Relevant to Health Maintenance Insurance [facility] Care Teams Azure Architect Relationship Specialty Start Date End Date Neftali Hicks DO [address] [place] [address] PCP - General Family Medicine 10/19/24 Jaylon Schroeder DO [address] [place] [address] Otolaryngology 08/15/24 Francis Benjamin MD 112 [facility] [address] [place] [address] Referring Physician Family Medicine 10/25/24
--- OUTSIDE RECORDS SUMMARY | 2025-01-23 14:25 | XMS_ITS | Encounter Summary ---
Author Organization [facility] Address [address] [place] [address] Care Team Providers Care Industrial Chemicals Supervisor Name Role Phone Jaylon Schroeder DO Unavailable [phone] Neftali Hicks DO Primary Care Provider Francis Benjamin MD Unavailable [phone] Encounter Details Date Type Department Care Team (Latest Contact Info) Description 01/23/2025 Travel Social History Tobacco Use Types Packs/Day Years [...] often do you attend chur ch or mandaen services? More than 4 times per year [...] Recorded Patient Health Questionnaire-2 Score 0 01/23/2025 [facility] Occup[facility] ional Health - Occupational Stress [...] place to sleep or slept in a correction (including now)? No 01/18/2023 Comments No Sex [...] Tineo MA documented as of this encounter Plan of Treatment Upcoming Encounters Date Type Department Care Team (Late st Contact Info) Description 10/22/2025 8:00 AM EDT Office Visit [facility] [address] [facility] [address] [place] [address] Neftali Hicks DO [address] [place] [address] documented as of this encounter Visit Diagnoses Not on filedocumented in this encounter Care Teams Industrial Chemicals Supervisor Relationship Specialty Start Date End Date Neftali Hicks DO [address] [place] [address] PCP - General Family Medicine 10/19/24 Jaylon Schroeder DO [address] [place] [address] Otolaryngology 08/15/24 Francis Benjamin MD [address] [place] [address] Referring Physician Family Medicine 10/25/24 documented as of this encounter
--- OUTSIDE RECORDS SUMMARY | 2025-01-23 14:25 | XMS_ITS | Encounter Summary ---
Author Organization [facility] Address [address] [place] [address] Care Team Providers Care Wedding Consultant Name Role Phone Francis Benjamin MD Primary Care Provider Jaylon Schroeder DO Unavailable [phone] Neftali Hicks DO Primary Care Provider Francis Benjamin MD Unavailable [phone] Encounter Details Date Type Department Care Team (Late st Contact Info) Description 02/16/2023 Abstract [facility] [address] [place] [phone] Chico Olvera MD [address] [place] [address] Social History Tobacco Use Types Packs/Day Years [...] How often do you attend chur or yarsani services? More than 4 times per year 01/18/2023 Do you belong to any clubs o r organizations such as taoism groups, unions, fraternal or athletic groups, or [...] care, and heating? Not very hard 01/18/2023 [facility] Occupat ional Health - Occupational Stress [...] place to sleep or slept in a skilled nursing (including now)? No 01/18/2023 Comments No Sex [...] suspected to have Coronavirus/COVID-19? No / Unsure 02/08/2023 3:26 PM EDT documented as of this encounter Plan of Treatment Upcoming Encounters Date Type Department Care Team (Late st Contact Info) Description 10/22/2025 8:00 AM EDT Office Visit [facility] [address] [place] [address] Neftali Hicks, [address] [place] [address] documented as of this encounter Visit Diagnoses Not on filedocumented in this encounter Care Teams Wedding Consultant Relationship Specialty Start Date End Date Francis Benjamin MD [address] [place] [address] PCP - General Family Medicine 12/10/22 10/18/24 Neftali Hicks, DO [address] [place] [address] PCP - General Family Medicine 10/19/24 Jaylon Schroeder, DO [address] [place] [address] Otolaryngology 08/15/24 Francis Benjamin MD [address] [place] [address] Referring Physician Family Medicine 10/25/24 documented as of this encounter
--- OUTSIDE RECORDS SUMMARY | 2025-01-23 14:25 | XMS_ITS | Encounter Summary ---
Author Organization [facility] Address [address] [place] [address] Care Team Providers Care Park Keeper Name Role Phone Francis Benjamin MD Primary Care Provider Jaylon Schroeder Man DO Unavailable [phone] Neftali Hicks DO Primary Care Provider [phone] Francis Benjamin MD Unavailable [phone] Encounter Details Date Type Department Care Team (Late st Contact Info) Description 03/18/2023 Abstract [facility] [address] [place] [address] Francis Benjamin MD [address] [address] Social History Tobacco Use Types [...] How often do you attend chur or jew services? More than 4 times per year 01/18/2023 Do you belong to any clubs o r organizations such as latter day groups, unions, fraternal or athletic groups, or [...] care, and heating? Not very hard 01/18/2023 [facility] ional Health - Occupational [...] place to sleep or slept in a chcf (including now)? No 01/18/2023 Comments No Sex [...] suspected to have Coronavirus/COVID-19? No / Unsure 03/16/2023 9:23 AM EDT documented as of this encounter Plan of Treatment Upcoming Encounters Date Type Department Care Team (Late st Contact Info) Description 10/22/2025 8:00 AM EDT Office Visit [facility] [address] [place] [address] Neftali Hicks, [address] [place] [address] documented as of this encounter Visit Diagnoses Not on filedocumented in this encounter Care Teams Park Keeper Relationship Specialty Start Date End Date Francis Benjamin MD [address] [place] [address] PCP - General Family Medicine 12/10/22 10/18/24 Neftali Hicks DO [address] [place] [address] PCP - General Family Medicine 10/19/24 Jaylon Schroeder DO [address] [place] [address] Otolaryngology 08/15/24 Francis Benjamin MD [address] [place] [address] Referring Physician Family Medicine 10/25/24 documented as of this encounter
--- OUTSIDE RECORDS SUMMARY | 2025-01-23 14:25 | XMS_ITS | Encounter Summary ---
Author Organization [facility] Address [address] [place] [address] Care Team Providers Care Meat Cutter Name Role Phone Francis Benjamin MD Primary Care Provider Jaylon Schroeder Man DO Unavailable [phone] Neftali Hicks DO Primary Care Provider Francis Benjamin MD Unavailable [phone] Encounter Details Date Type Department Care Team (Late st Contact Info) Description 03/22/2023 Abstract [facility] [address] [place] [address] Francis Benjamin MD [address] [place] [address] [address] Social History Tobacco Use Types [...] How often do you attend chur or catholic services? More than 4 times per year 01/18/2023 Do you belong to any clubs o r organizations such as voodoo groups, unions, fraternal or athletic groups, or [...] place to sleep or slept in a assisted (including now)? No 01/18/2023 Comments No Sex [...] [address] [place] [address] Neftali Hicks, [address] [place] [address] documented as of this encounter Visit Diagnoses Not on filedocumented in this encounter Care Teams Meat Cutter Relationship Specialty Start Date End Date Francis Benjamin MD [address] [place] [address] PCP - General Family Medicine 12/10/22 10/18/24 Neftali Hicks DO [address] [place] [address] PCP - General Family Medicine 10/19/24 Jaylon Schroeder DO [address] [place] [place] [address] Otolaryngology 08/15/24 Francis Benjamin MD [address] [place] [address] Referring Physician Family Medicine 10/25/24 documented as of this encounter
--- NOTE | 2025-01-23 14:37 | CT_ITS ---
The [address] [address] Patient Name: SYLVIE SINGH MRN: [id number] date: 1970 Sex: F Assigned Patient Location: ER Current Patient Location: ER Accession/Order Number: [id number] Exam Date: 01/23/2025 15:18 Report Date: 01/23/2025 15:22 At the request of: GARCIA CHAUDHARI NP Procedure: CT head/brain wo con CT BRAIN WITHOUT CONTRAST: CLINICAL HISTORY: HTN, R face/ arm paresthesia COMPARISON: CTA 04/04/2021 TECHNIQUE: Contiguous axial unenhanced images were obtained through the brain. This CT exam was performed using one or more following dose reduction techniques: Automated exposure control, adjustment of the mA and/or kV according to patient size, or use of iterative reconstruction technique. FINDINGS: There is no evidence of midline shift, intra or extra-axial fluid collection, hemorrhage or CT evidence of acute large vascular distribution stroke Visualized intraorbital contents appear unremarkable. Visualized paranasal sinuses are clear. The surrounding soft tissues are normal. CT/CT head/brain wo con IMPRESSION: NO ACUTE INTRACRANIAL ABNORMALITY. Impression dictated by: Kevin Sanabria M.D. 01/23/2025 3:22 PM Dictation Location: [place] [address] Electronically authenticated by: [id number] Y Date: 01/23/2025 15:22
--- NOTE | 2025-01-23 14:37 | ECG_ITS ---
The [facility] Test Date: 2025-01-23 Pat Name: SYLVIE SINGH Department: Room: - Gender: Female Equal Opportunity Director: : 1970 Requested By: [id number] Order Number: [id number] Reading MD: NILTON HUNTLEY M.D. Measurements Intervals [place] Rate: 78 P: 60 PA: 138 QRS: 46 QRSD: 88 T: 32 QT: 366 QTc: 399 Interpretive Statements 1100 Sinus rhythm 8102 Low QRS voltage in chest leads 9120 atypical ECG Compared to ECG 07/06/2024 01:51:58 No significant changes Electronically Signed On 01-24-2025 6:38:05 EDT by NILTON HUNTLEY M.D.
[2025-01-23] MEDS: HYDRALAZINE HCL 20 MG/ML VIAL 10 MG IVP (14:46)
[2025-01-23 15:01] LABS: Hematocrit 39.9 % (36.0-48.0); Hemoglobin 12.9 g/dL (12.0-16.0); Immature Granulocytes Abs Auto 0.01 10^3/uL (0.00-0.03); Immature Granulocytes Pct Auto 0.1 % (0.0-0.5); Lymphocytes Absolute Auto 1.4 10^3/uL (1.2-3.8); Mean Corpuscular HGB Conc 32.3 g/dL (29.9-35.2); Mean Corpuscular Hemoglobin 27.7 pg (26.7-34.0); Mean Corpuscular Volume 85.6 fL (81.0-99.0); Platelet Count 245 10^3/uL (150-450); Red Blood Count 4.66 10^6/uL (4.20-5.40); White Blood Count 7.4 10^3/uL (4.0-11.0)
[2025-01-23 15:09] LABS: Alanine Aminotransferase 22 U/L (14-59); Albumin Globulin Ratio 0.9; Albumin Level 3.4 g/dL (3.4-5.0); Alkaline Phosphatase 115 U/L (46-116); Anion Gap 9.1; Aspartate Amino Transferase 24 U/L (15-37); Blood Urea Nitrogen 17.0 mg/dL (7.0-18.0); Calcium 8.8 mg/dL (8.5-10.1); Carbon Dioxide 30.9 mmol/L (21.0-32.0); Chloride 104 mmol/L (98-107); Estimated GFR (African America >60 (>=60 mL/min/1.73m^2); Estimated GFR (Non-African Ame >60 (>=60 mL/min/1.73m^2); Globulin 3.7 g/dL; Glucose 105 mg/dL (74-106); Potassium 4.0 mmol/L (3.5-5.1); Sodium 140 mmol/L (136-145); Total Protein 7.1 g/dL (6.4-8.2)
--- NOTE | 2025-01-23 15:50 | ED.GENADUL1 ---
HPI HPI - General Adult General Chief complaint: Recheck/Abnormal Lab/Rx Stated complaint: HYPERTENSION Time Seen by Provider: 01/23/25 14:22 Source: patient Mode of arrival: walk-in Limitations: no limitations History of Present Illness HPI narrative: The patient is a 54-year-old female who presents to the emergency department today for evaluation of concerns for hypertension. 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 She subsequently saw her primary care provider who started her on a new oral oral antihypertensive medication and did advise for the patient to come to the ER for further evaluation. She endorses since yesterday she has felt a little lightheaded and felt tingly to the right side of her face/head and right upper extremity. She denies any vision difficulties, neck/back pain, chest pain, shortness of breath. No weakness or slurred speech. She mention she has a history of hypertension and prediabetes however reports with weight loss medical therapy was discontinued. Significant cardiovascular history including KS or CVA. Additionally no sick symptoms of fever/chills or cough/cold symptoms. Related Data Home Medications ?Medication ?Instructions ?Recorded ?Confirmed duloxetine 20 mg capsule,delayed 20 mg PO DAILY 07/06/24 01/23/25 release Allergies Allergy/AdvReac Type Severity Reaction Status Date / Time No Known Drug Allergies Allergy Verified 07/06/24 01:55 Opioid HPI Opioid Management Most Recent Opioid Data: Last Pain Scale 0 07/06/24, 03:12 Review of Systems ROS Status of ROS 10 or more systems reviewed and unremarkable except as noted in history and below PFSH PFSH Social History Little interest or pleasure in doing things: not at all Feeling down, depressed, or hopeless: not at all Exam Narrative Exam Narrative: Constituational: Awake/ alert, no apparent distress, well hydrated HENMT: normocephalic, external ears normal, moist oral mucous membranes and oropharynx normal Eyes: EOMI and conjunctivae normal Neck: ROM intact Chest: inspection of chest normal Respiratory: Normal respiratory effort, clear to auscultation bilaterally Cardio: regular rate and regular rhythm GI: soft to palpation and non-tender Back: nontender MSK: ROM intact, +NVI Skin: no rashes or petechiae Neuro: no focal deficits Psych: mental status grossly normal Constitutional Vital Signs, click to edit/add: Last Vital Signs Pulse 81 01/23/25 15:20 Resp 21 H 01/23/25 15:20 BP 130/79 01/23/25 15:15 Pulse Ox 94 L 01/23/25 15:20 O2 Del Method Room Air 01/23/25 14:30 Course Vital Signs Vital signs: Vital Signs Pulse Rate 89 01/23/25 14:21 Respiratory Rate 18 01/23/25 14:21 Blood Pressure 192/102 H 01/23/25 14:21 Pulse Oximetry 96 01/23/25 14:21 Oxygen Delivery Method Room Air 01/23/25 14:21 Pulse Rate 81 01/23/25 15:20 Respiratory Rate 21 H 01/23/25 15:20 Blood Pressure 130/79 01/23/25 15:15 Pulse Oximetry 94 L 01/23/25 15:20 Oxygen Delivery Method Room Air 01/23/25 14:30 Medical Decision Making MDM Narrative Medical decision making narrative: The patient is a well-appearing 54-year-old female who presented to the emergency department today for evaluation concerns for hypertension and some paresthesias to the right side of her face and upper extremity. Initial examination without a concerning neurologic or strokelike findings on exam. No concerning neurovascular or motor findings on exam of the extremities. EKG without acute changes. Troponin negative x 1. CT imaging of head without critical findings. Labs otherwise stable and showed no severe leukocytosis, anemia, thrombocytopenia. Electrolytes including renal and hepatic function stable. UA is negative for UTI. Received supportive measures of IVPB hydralazine and on reevaluation SBP 130s to 140s. Clinical impression hypertension. Discussed this with the patient including recommendations for supportive care. Advised on initiating she was prescribed by her primary care provider today for her hypertension. Discussed monitoring her blood pressure at home and following a low-salt diet for 5 minutes. Discussed signs and symptoms of any worsening condition and when to consider reevaluation by the emergency department. Patient verbalized an understanding of this and is agreeable with the plan to be discharged home. Medical Records Medical records reviewed: Yes I reviewed the patient's medical records Lab Data Lab results reviewed: Yes I reviewed the patient's lab results Labs: Lab Results 01/23/25 01/23/25 Range/Units 14:35 15:41 WBC 7.4 (4.0-11.0) 10^3/uL RBC 4.66 (4.20-5.40) 10^6/uL Hgb 12.9 (12.0-16.0) g/dL Hct 39.9 (36.0-48.0) % MCV 85.6 (81.0-99.0) fL MCH 27.7 (26.7-34.0) pg MCHC 32.3 (29.9-35.2) g/dL RDW 13.5 (11.0-15.0) % Plt Count 245 (150-450) 10^3/uL MPV 10.1 (9.5-13.5) fL Neut % (Auto) 74.7 (43.0-75.0) % Lymph % (Auto) 19.3 L (20.5-60.0) % Crane % (Auto) 4.8 (1.7-12.0) % Eos % (Auto) 0.7 L (0.9-7.0) % Baso % (Auto) 0.4 (0.2-2.0) % Neut # (Auto) 5.5 (1.4-6.5) 10^3/uL Lymph # (Auto) 1.4 (1.2-3.8) 10^3/uL Crane # (Auto) 0.4 (0.3-0.8) 10^3/uL Eos # (Auto) 0.1 (0.0-0.7) 10^3/uL Baso # (Auto) 0.0 (0.0-0.1) 10^3/uL Abs Immat Gran (auto) 0.01 (0.00-0.03) 10^3/uL Imm/Tot Granulo (auto) 0.1 (0.0-0.5) % Sodium 140 (136-145) mmol/L Potassium 4.0 (3.5-5.1) mmol/L Chloride 104 (98-107) mmol/L Carbon Dioxide 30.9 (21.0-32.0) mmol/L Anion Gap 9.1 BUN 17.0 (7.0-18.0) mg/dL Creatinine 0.65 (0.55-1.02) mg/dL Est GFR ( Amer) >60 (>=60 mL/min/1.73m^2) Est GFR (Non-Af Amer) >60 (>=60 mL/min/1.73m^2) BUN/Creatinine Ratio 26.2 Glucose 105 (74-106) mg/dL Calcium 8.8 (8.5-10.1) mg/dL Total Bilirubin 0.9 (0.2-1.0) mg/dL AST 24 (15-37) U/L ALT 22 (14-59) U/L Alkaline Phosphatase 115 (46-116) U/L Troponin I High Sens 4.4 (4.0-51.3) pg/mL Total Protein 7.1 (6.4-8.2) g/dL Albumin 3.4 (3.4-5.0) g/dL Globulin 3.7 g/dL Albumin/Globulin Ratio 0.9 Urine Color Lt. yellow (YELLOW) Urine Clarity Clear (CLEAR) Urine pH 6.5 (5.0-9.0) Ur Specific [place] <=1.005 A (1.005-1.025) Urine Protein Negative (NEG/TRACE) mg/dL Urine Glucose (UA) Negative (NEGATIVE) mg/dL Urine Ketones Negative (NEGATIVE) mg/dL Urine Occult Blood Negative (NEGATIVE) Urine Nitrite Negative (NEGATIVE) Urine Bilirubin Negative (NEGATIVE) Urine Urobilinogen 2.0 A (0.2-1.0) EU/dL Ur Leukocyte Esterase Trace A (NEGATIVE) Urine RBC None seen (0-2) #/HPF Urine WBC 0-2 A (NONE SEEN) #/HPF Ur Squamous Epith Cells Rare (NONE/RARE) #/LPF Urine Crystals None seen (None Seen) #/HPF Urine Bacteria Trace A (NONE SEEN) #/HPF Urine Casts None seen (NONE SEEN) #/LPF Urine Mucus None seen (NONE SEEN) Ur Culture Indicated? No Imaging Data CT scan - head: Radiologist's impression: ITS Impressions Head CT 01/23/25 14:37 IMPRESSION: NO ACUTE INTRACRANIAL ABNORMALITY. Impression dictated by: Kevin Sanabria M.D. 01/23/2025 3:22 PM Dictation Location: [place] [id number] Electronically authenticated by: [id number] Y Date: 01/23/2025 15:22 ECG Data Attestation: I personally reviewed and interpreted this ECG as follows: (EKG shows SR with HR 78, no acute/ischemic changes) Discharge Plan Discharge Chief Complaint: Recheck/Abnormal Lab/Rx Clinical Impression: Hypertension Patient Disposition: Home, Self-Care Prescriptions / Home Meds: No Action duloxetine 20 mg capsule,delayed release(DR/EC) 20 mg PO DAILY Print Language: [place] Instructions: Heart Healthy Diet (ED), Hypertension (ED) Additional Instructions: Blood pressure medication as prescribed. Follow a heart healthy/low-salt diet. Follow-up with your primary care provider for reevaluation as discussed. May return to the ER with any new or worsening symptoms/concerns. Referrals: Neftali Hicks [Primary Care Provider] - 1 week
[2025-01-23 15:54] LABS: Glucose Urine UA NEGATIVE (NEGATIVE)
[2025-01-23 16:01] LABS: Cast Seen? NONE SEEN #/LPF (NONE SEEN); Crystals Seen? None Seen #/HPF (None Seen); Urine Culture Indicated NO
== END 2025-01-23 16:45 | disposition home or self-care (01) ==
PROVIDERS: Nurse Practitioner; Emergency Provider Student in an Organized Health Care Education/Training Program; PCP Family Medicine
DX: I10 Essential (primary) hypertension (principal)
CPT/HCPCS: 36415; 70450; 80053; 81001; 84484; 85025; 93005; 96374; 99285; J0360